=== PATIENT | male | born 1945 ===

== ENCOUNTER 2024-04-29 11:26 | Outpatient (AMB) | payer MEDICARE, MEDICAID, SELFPAY ==
[2024-04-29 11:27] VITALS: BP 112/74; PULSE 76; O2SAT 98; BMI 22.1
--- NOTE | 2024-04-29 11:27 | MHC.PC.OV ---
Vital Signs 04/29/24 11:27 Height 5 ft 7 in Weight 141 lb 0.6 oz BMI 22.1 BP 112/74 Blood Pressure Location Lt brachial Position Sitting Pulse 76 Pulse Source Pulse Oximeter Pulse Oximetry (%) 98 Oxygen Delivery Method Room Air Intake Visit Reasons: New Patient Installation Service Representative Required: Yes Installation Service Representative Language: Malawian Allergies No Known Allergies Allergy (Verified 04/29/24 11:31) Medication List - Last Reconciled 04/29/24 by Ashlie Vitale PA-C amlodipine 5 mg PO DAILY apixaban (Eliquis) 5 mg PO ONCE doxazosin 2 mg PO DAILY labetalol 100 mg PO DAILY levothyroxine 25 mcg PO DAILY lisinopril 20 mg PO DAILY spironolactone 25 mg PO DAILY Tobacco use date assessed: 04/29/24 Fall risk assessment: No Falls in past year Last assessed Fall Risk: 04/29/24 Dental Screening Dental Screen Date: 04/29/24 Did you have a dental visit in the last 12 months?: No Did you have a dental problem in the last 6 months where you did not have access to dental care?: No HPI New Patient HPI Details 78-year-old male coming to the office for the 1st time. Patient is not known to [facility]. Patient recently moved to [place] from [place] January 2024. He was diagnosed with inguinal hernia which was repaired over the summer. He has a history of a myocardial infarction and possible CVA but is unsure of the dates of these. He does rarely have chest pain that lasts for a few seconds before resolving. Last episode was 2 days ago and previously had been months ago. Denies any shortness of breath. He has a history of rheumatoid arthritis with pain in the right knee and was previously being evaluated while in [place]. Also while in [place] he had left-sided weakness CVA was ruled out and found to have muscular spasms which was treated with physical therapy in home. He primarily walks with a walker for long distances and cane while at home but does not have this equipment. Also requesting a shower chair. He was using hearing aids while in [place] but has not been evaluated many years. [facility] Medical History (Updated 04/29/24 @ 12:48 by Ashlie Vitale PA-C) Myocardial infarction Surgical History (Updated 04/29/24 @ 11:56 by [facility] H/O inguinal hernia repair H/O heart artery stent Social History Housing: House Patient Tobacco Use Status: Former Tobacco user service: No Current occupational status: retired Cognitive needs: Yes Hearing needs: Yes Vision needs: No Questionnaire PHQ-9 Over the last 2 weeks, how often have you been bothered by any of the following problems? 1. Little interest or pleasure in doing things: not at all 2. Feeling down, depressed, or hopeless: not at all 3. Trouble falling or staying asleep, or sleeping too much: not at all 4. Feeling tired or having little energy: not at all 5. Poor appetite or overeating: not at all 6. Feeling bad about yourself - or that you are a failure or have let yourself or your family down: not at all 7. Trouble concentrating on things, such as reading the newspaper or watching television: not at all 8. Moving or speaking so slowly that other people could have noticed. Or the opposite - being so fidgety or restless that you have been moving around a lot more than usual: not at all 9. Thoughts that you would be better off or of hurting yourself in some way: not at all Total score: 0 Source: Developed by Drs. Tono Arellano, Shauna Mazariegos, Vamsi Petersen and colleagues, with an educational sheila from [employer]. Thrive Questionnaire Date Thrive assessed: 04/29/24 I am a: Patient What is your living situation today?: I have a steady place to live Within the past 12 months, did the food you bought not last and you didn't have the money to get more?: I choose not to answer this question Within the past 12 months, did you worry whether your food would run out before you got money to buy more?: I choose not to answer this question Do you have trouble paying for medicines?: I choose not to answer this question Do you have trouble getting transportation to medical appointments?: I choose not to answer this question Do you have trouble paying your heating and electricity bill?: I choose not to answer this question Do you have trouble taking care of your child, family member or friend?: I choose not to answer this question Do you have trouble with day-to-day activities such as bathing, preparing meals, shopping, managing finances, etc.?: Yes Are you currently unemployed and looking for a job?: No Are you interested in more education?: No Please select the resources that you would like help with: Care for elder or disabled Currently or been in a relationship where the following occur: No concerns reported THRIVE Score: 0 AUDIT C Alcohol Use Questionnaire (AUDIT-C) 1. How often do you have a drink containing alcohol?: Never 3. How often do you have six or more drinks on one occasion?: Never Total Score: 0 TANYA-7 AMB Questionnaire TANYA-7 Date TANYA - 7 assessed: 04/29/24 Feeling nervous, anxious, or on edge: 0 = Not at all Not being able to stop or control worryin = Not at all Worrying too much about different things: 0 = Not at all Trouble relaxin = Not at all Being so restless that it is hard to sit still: 0 = Not at all Becoming easily annoyed or irritable: 0 = Not at all Feeling afraid as if something awful might happen: 0 = Not at all Total TANYA-7 score (0-4 normal; 5-9 mild; 10-14 moderate; 15-21 severe): 0 Source: Developed by Drs. Tono Arellano, Shauna Mazariegos, Vamsi Petersen and colleagues, with an educational sheila from [employer]. TANYA-7 Assessment Billing TANYA-7 Assessment Tool: TANYA-7 Assessment 90598 Review of Systems Const Denies body aches, Denies fatigue, Denies fever(s), Denies frequent falls, Denies headache(s) and Denies weakness Eyes Reports no additional complaints and Denies change in vision ENT Denies dysphagia, Denies dizziness, Denies facial pain, Denies headache(s), Reports hearing loss, Denies nasal congestion and Denies odynophagia Card Denies chest pain, Denies syncope, Denies irregular heart rhythm, Denies leg edema, Denies lightheadedness and Denies dyspnea Resp Denies cough and Denies dyspnea GI Denies abdominal pain, Denies constipation, Denies dysphagia, Denies dyspepsia, Denies diarrhea, Denies nausea, Denies odynophagia and Denies vomiting Denies dysuria and Denies urinary urgency Musc Details: Bilateral knee pain Denies back pain and Denies myalgias Skin/Breast Reports system reviewed and no additional complaints, except as documented Neuro Denies dizziness, Denies syncope, Denies frequent falls, Denies headache(s) and Denies weakness Psych Reports no additional complaints Endo Denies fatigue Physical exam (Primary Care) Vital Signs: Oxygen Delivery Method Room Air 04/29/24 11:27 Tobacco/Smoking Status: Tobacco use Status Tobacco use date assessed 04/29/24 04/29/24 11:28 PHQ-9: PHQ-9 Score PHQ-9: Total score 0 04/29/24 11:28 Thrive Assessment: Date of Thrive Assessment Date Thrive assessed 04/29/24 04/29/24 11:28 Currently or been in a relationship where the following occur: No concerns reported Const General: cooperative, healthy appearing, comfortable and no acute distress Orientation/consciousness: patient oriented x3 Limitations: ambulation with cane HENMT Head: Yes normocephalic Ears: hearing grossly normal bilaterally General nose exam: Normal external nose present Eyes General: appearance normal, both eyes and all related structures Conjunctivae: conjunctivae normal Neck Neck: Yes full ROM and Yes no lymphadenopathy Resp Effort & Inspection: normal respiratory effort Auscultation: clear to auscultation bilaterally, no crackles, no rales, no rhonchi and no wheezes Cardio Rate: regular rate Rhythm: regular rhythm Skin General skin exam: no rashes or lesions noted Neuro General: patient oriented x3 Gait exam (Neuro): Normal gait present Extrem General: Yes normal to inspection, Yes full ROM and No edema Psych Affect: normal affect Attitude: cooperative Insight: Good insight present (Psych) Judgement: Good judgement present (Psych) Coding Level of Care Code New Pt Level 4 (45750) Diagnoses Decreased hearing H91.90 Rheumatoid arthritis M06.9 COPD (chronic obstructive pulmonary disease) J44.9 Diabetes E11.9 Heart failure I50.9 Myocardial infarction I21.9 Additional Codes TANYA-7 Assessment Billing - TANYA-7 Assessment Tool: TANYA-7 Assessment 80903 ([id number]) Assessment & Plan Assessment & Plan (1) Decreased hearing: Code(s): H91.90 - Unspecified hearing loss, unspecified ear Category: Medical Plan: Referral placed for [facility] speech and hearing. (2) Rheumatoid arthritis: Code(s): M06.9 - Rheumatoid arthritis, unspecified Category: Medical Plan: Patient states he has a history of rheumatoid arthritis ordered for rheumatoid factor and can consider referral to Rheumatology. Requesting there records from his previous PCP. (3) COPD (chronic obstructive pulmonary disease): Code(s): J44.9 - Chronic obstructive pulmonary disease, unspecified Category: Medical Plan: Patient reports a history of COPD and not currently on medical management requesting records from previous PCP. (4) Diabetes: Code(s): E11.9 - Type 2 diabetes mellitus without complications Category: Medical Plan: Decrease the amount of carbohydrates such as pasta, bread, rice, and potatoes and limit the amount of sweets. Although fruits are generally healthy they should be eaten in moderation as they are still high in sugar. Hemoglobin A1c goal of less than 7%. Ordered for updated blood work, not currently on medical management. (5) Heart failure: Code(s): I50.9 - Heart failure, unspecified Category: Medical Plan: Patient is portal from his last PCP has heart failure listed as a working diagnosis. Referral placed for Cardiology and requesting previous records. Continue on current medication regimen. (6) Myocardial infarction: Comment: 2020 Code(s): I21.9 - Acute myocardial infarction, unspecified Category: Medical Plan: Patient has a history of a myocardial infarction unclear of the actual date or year but thinks it is from 2020. He has multiple stents placed in his heart. Referral placed for Cardiology at this time and requesting records from previous PCP. Plan Ordered for updated blood work and we will follow up in 2 months for annual exam. This note was constructed using voice recognition software. While every effort has been made to ensure accuracy and director of family service center, still areas may have been included sometimes these areas may affect the content or meeting of the given symptoms. Total time spent caring for the patient today was 30 minutes. This includes time spent before the visit reviewing the chart, time spent during the visit, and time spent after the visit and documentation. Orders: Orders Hemoglobin A1c Today Z00.00 - Encounter for general adult medical examination without abnormal findings Free T4 (Free Thyroxine) Today Z00.00 - Encounter for general adult medical examination without abnormal findings Vitamin D 25-OH (D2 and D3) Today Z00.00 - Encounter for general adult medical examination without abnormal findings PSA, Ultra Sensitive Today Z00.00 - Encounter for general adult medical examination without abnormal findings Comprehensive Met. Panel Today Z00.00 - Encounter for general adult medical examination without abnormal findings Complete Blood Count Auto Diff Today Z00.00 - Encounter for general adult medical examination without abnormal findings TSH reflex Free T4 Today Z00.00 - Encounter for general adult medical examination without abnormal findings Vitamin B12 and Folate Today Z00.00 - Encounter for general adult medical examination without abnormal findings UA CC w/rflx Micro + Cult Today R35.89 - Other polyuria Microalbumin, Random (w Creat) Today E11.9 - Type 2 diabetes mellitus without complications Lipid Panel Today Z00.00 - Encounter for general adult medical examination without abnormal findings Rheumatoid Factor Today M06.9 - Rheumatoid arthritis, unspecified Referrals Cardiology Referral I50.9 - Heart failure, unspecified Speech and Hearing Referral H91.90 - Unspecified hearing loss, unspecified ear Optometry Referral Z00.00 - Encounter for general adult medical examination without abnormal findings
== END 2024-04-29 12:23 | disposition home or self-care (01) ==
DX: M06.9 Rheumatoid arthritis, unspecified (principal); J44.9 Chronic obstructive pulmonary disease, unspecified; E11.9 Type 2 diabetes mellitus without complications; I50.9 Heart failure, unspecified; I21.9 Acute myocardial infarction, unspecified; H91.93 Unspecified hearing loss, bilateral

== ENCOUNTER → 2024-04-29 11:26 | Outpatient (BNVA) | payer MEDICARE, MEDICAID, SELFPAY | DX: H91.90 Unspecified hearing loss, unspecified ear (principal); M06.9 Rheumatoid arthritis, unspecified; J44.9 Chronic obstructive pulmonary disease, unspecified; E11.9 Type 2 diabetes mellitus without complications; I50.9 Heart failure, unspecified; I21.9 Acute myocardial infarction, unspecified | CPT/HCPCS: 96127; 99202 ==

== ENCOUNTER 2024-04-30 08:55 | Outpatient (REF) | payer OTHER, SELFPAY ==
[2024-04-30 09:26] LABS: MANUAL DIFF FLAG NO
[2024-04-30 10:36] LABS: Basophils Absolute Auto 0.1 X10*3/uL (0.0-0.2); Basophils Percent Auto 1.1 % (0-2); Eosinophils Absolute Auto 0.4 X10*3/uL (0.0-0.4); Eosinophils Percent Auto 8.1 % (0-4); Hematocrit 39.2 % (42.0-52.0); Hemoglobin 12.9 g/dl (14.0-18.0); Imm Gran Abs Auto 0.02 X10*3/uL (0.00-0.03); Imm Gran Pct Auto 0.4 % (0.0-0.4); Lymphocytes Absolute Auto 1.2 X10*3/uL (1.2-4.9); Lymphocytes Percent Auto 21.7 % (20-40); Mean Corpuscular HGB Conc 32.9 g/dl (31.0-36.0); Mean Corpuscular Hemoglobin 27.6 pg (27.0-33.0); Mean Corpuscular Volume 83.8 fL (80.0-98.0); Mean Platelet Volume 10.2 fL (9.4-12.4); Monocytes Absolute Auto 0.4 X10*3/uL (0.1-1.2); Monocytes Percent Auto 8.2 % (2-11); Neutrophils Absolute Auto 3.2 x10*3/uL (2.0-8.3); Neutrophils Percent Auto 60.5 % (45-73); Platelet Count 219 X10*3/uL (160-400); Red Blood Count 4.68 X10*6/uL (4.60-5.80); Red Cell Distribution Width 14.9 % (11.0-16.0); White Blood Count 5.3 X10*3/uL (4.8-10.8)
[2024-04-30 11:06] LABS: Estimated Average Glucose 105 mg/dL; Hemoglobin A1C 112.7906 umol/L; Hemoglobin A1c % 5.3 % (<6.0); Total Hemoglobin (HGBA1C) 3251.3951 umol/L
[2024-04-30 11:54] LABS: TSH reflex Free T4 1.86 uIU/mL (0.32-4.0)
[2024-04-30 11:58] LABS: Anion Gap 10 (12-20)
[2024-04-30 11:59] LABS: Folate 5.2 ng/mL (> or = 4.0); Vitamin B12 185 pg/mL (200-900)
[2024-04-30 12:03] LABS: Alanine Aminotransferase 7 U/L (0-40); Albumin Level 3.7 g/dL (3.5-5.0); Alkaline Phosphatase 85 U/L (39-117); Aspartate Amino Transferase 18 U/L (5-37); Bilirubin Total 0.7 mg/dL (0.0-1.0); Blood Urea Nitrogen 20 mg/dL (9-16); Calcium 9.9 mg/dL (8.4-10.2); Carbon Dioxide 29 mmol/L (22-29); Chloride 105 mmol/L (96-108); Cholesterol 176 mg/dL (<200); Estimated Glomerular Filt Rate 55; Glucose Random 93 mg/dL (60-115); HDL Cholesterol 35 mg/dL (>40); LDL Cholesterol Calculated 127 mg/dL (<100); Potassium 4.4 mmol/L (3.3-5.1); Sodium 140 mmol/L (135-145); Total Protein 6.8 g/dL (6.5-8.0); Triglycerides 74 mg/dL (<150)
[2024-04-30 12:59] LABS: Rheumatoid Factor 218.8 IU/mL (<15.0)
[2024-05-08 16:03] LABS: Vitamin D 25-OH, D2 <4 ng/mL; Vitamin D 25-OH, D3 36 ng/mL; Vitamin D 25-OH, Total 36 ng/mL (30-100)
[2024-05-11 21:33] LABS: PSA, Ultra Sensitive 20.79 ng/mL
== END 2024-04-30 08:56 | disposition home or self-care (01) ==
LOC: HO.LAB 08:55
DX: Z00.00 Encounter for general adult medical examination without abnormal findings (principal); Z12.5 Encounter for screening for malignant neoplasm of prostate; M06.9 Rheumatoid arthritis, unspecified; Z13.1 Encounter for screening for diabetes mellitus
CPT/HCPCS: 36415; 80053; 80061; 82306; 82607; 82746; 83036; 84153; 84439; 84443; 85025; 86431

== ENCOUNTER 2024-05-01 04:05 | Outpatient (REF) | payer OTHER, SELFPAY ==
[2024-05-01 10:16] LABS: Appearance Urine Clear; Color Urine Yellow; Glucose Urine UA Negative (Negative); Leukocyte Esterase Urine Negative (Negative); Nitrite Urine Negative (Negative); Specific Gravity - Urine 1.015 (1.005-1.025); Urine Blood Negative (Negative); Urine Ketones Negative (Negative); Urine Protein Negative (Neg-Trace)
[2024-05-01 10:52] LABS: Creatinine Urine 121.57 mg/dL; Microalbumin Urine < 5.0 mg/L
== END 2024-05-01 04:06 | disposition home or self-care (01) ==
LOC: HO.LNP 04:05
DX: E11.9 Type 2 diabetes mellitus without complications (principal); R35.89 Other polyuria
CPT/HCPCS: 81003; 82570

== ENCOUNTER 2024-05-21 12:22 | Outpatient (REF) | payer OTHER, SELFPAY | END 2024-05-21 12:23 | disposition home or self-care (01) | LOC: HO.SH 12:22 | DX: Z01.118 Encounter for examination of ears and hearing with other abnormal findings (principal); H90.3 Sensorineural hearing loss, bilateral | CPT/HCPCS: 92557; 92567 ==

== ENCOUNTER 2024-06-08 11:19 | Outpatient (AMB) | payer OTHER, SELFPAY ==
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
[2024-06-08 11:22] VITALS: BP 110/62; BMI 22.6
== END 2024-06-08 12:11 | disposition home or self-care (01) ==
DX: Z00.00 Encounter for general adult medical examination without abnormal findings (principal); I21.9 Acute myocardial infarction, unspecified; I48.91 Unspecified atrial fibrillation; I71.00 Dissection of unspecified site of aorta; J44.9 Chronic obstructive pulmonary disease, unspecified; E11.9 Type 2 diabetes mellitus without complications; I50.9 Heart failure, unspecified; G81.90 Hemiplegia, unspecified affecting unspecified side; M06.9 Rheumatoid arthritis, unspecified; E03.9 Hypothyroidism, unspecified; R97.20 Elevated prostate specific antigen [PSA]; E78.00 Pure hypercholesterolemia, unspecified

== ENCOUNTER → 2024-06-08 11:19 | Outpatient (BNVA) | payer OTHER, SELFPAY | DX: Z00.00 Encounter for general adult medical examination without abnormal findings (principal); I21.9 Acute myocardial infarction, unspecified; I48.91 Unspecified atrial fibrillation; I71.00 Dissection of unspecified site of aorta; E03.9 Hypothyroidism, unspecified; R97.20 Elevated prostate specific antigen [PSA]; M06.9 Rheumatoid arthritis, unspecified; J44.9 Chronic obstructive pulmonary disease, unspecified; E11.9 Type 2 diabetes mellitus without complications; I50.9 Heart failure, unspecified; G81.90 Hemiplegia, unspecified affecting unspecified side; E78.00 Pure hypercholesterolemia, unspecified; E53.8 Deficiency of other specified B group vitamins; H61.23 Impacted cerumen, bilateral | CPT/HCPCS: 99397 ==

== ENCOUNTER 2024-06-15 07:53 | Outpatient (AMB) | payer OTHER, SELFPAY ==
--- NOTE | 2024-06-15 07:57 | A.OFFVIS_ITS ---
Intake Visit Reasons: elevated PSA Intake Note: New Patient presents for initial visit for elevated psa (psa 20.79) Urology Medications: none Blood Thinner: Apixaban Remote Sensing Analyst Required: Yes Remote Sensing Analyst Name: [id number] Gerontology Aide: Gerontology Aide offered & declined Accompanied by: Unknown Allergies No Known Allergies Allergy (Verified 06/15/24 08:39) Medication List - Last Reconciled 06/15/24 by PATRIC Urban amlodipine 5 mg PO DAILY apixaban (Eliquis) 5 mg PO ONCE atorvastatin 40 mg PO BEDTIME cyanocobalamin (vitamin B-12) 1,000 mcg PO DAILY doxazosin 2 mg PO DAILY heating pads As directed hospital bed As directed labetalol 100 mg PO DAILY levothyroxine 25 mcg PO DAILY lisinopril 20 mg PO DAILY [quad cane As directed] Shower Chair As directed spironolactone 25 mg PO DAILY sulfamethoxazole-trimethoprim 800-160 mg (Bactrim DS) 1 tab PO BID 14 days [walker As directed for long distance] walker (Ultra-Light Rollator misc) As directed HPI Comments Details: Toan is a very pleasant 78-year-old [place]an-speaking male patient of who was accompanied by his niece at today's office visit. He has a past medical history of myocardial infarction in 2020, hypertension, and hypothyroidism. He presents to the office today as a new patient for an elevated PSA. In discussion with the patient and his niece today he reports having followed up with his PCP and his blood work for his prostate was elevated and recommendation was made for urology referral for further assessment evaluation. When asked he denies any bothersome urinary issues or concerns. He denies urinary urgency, urinary frequency, incontinence, nocturia, hematuria, dysuria, foul smelling urine, changes to urinary stream, flank pain, fever, and or chills. He is happy with his current voiding parameters. He denies any known family history of prostate cancer. In review of patient's chart it appears PSA 05/23 20.8. JOHNNY performed boggy prostate noted. We discussed at length potential causes of elevated PSA and potential for prostatitis given JOHNNY. We discussed treatment for prostatitis and reassessment in 6 weeks with PSA. We discussed obtaining retroperitoneal ultrasound for further assessment evaluation. He otherwise offers no other issues or concerns at this time. [facility] Medical History Myocardial infarction Surgical History H/O inguinal hernia repair H/O heart artery stent Social History Housing: House Alcohol intake: never Patient Tobacco Use Status: Former Tobacco user e-Cigarette/Vaping Use: Never Used Second Hand Smoke Exposure: Yes service: No Current occupational status: retired Cognitive needs: Yes (Cane) Hearing needs: Yes (Hearing aide) Vision needs: No Review of Systems Const All systems reviewed & are unremarkable except as noted in HPI and below Physical Exam Const General: cooperative, healthy appearing, comfortable, no acute distress, well developed, alert and awake Nutritional Appearance: thin Orientation/consciousness: patient oriented x3 Limitations: language barrier and ambulation with cane HEENT Head: Yes normal to inspection, Yes normocephalic and Yes atraumatic Ears: hearing grossly normal bilaterally Eyes General: appearance normal, both eyes and all related structures Neck Neck: Yes normal visual inspection and Yes trachea midline Chest Chest palpation & inspection: normal inspection of the chest Resp Effort & Inspection: normal respiratory effort and able to speak in complete sentences Cardio Rate: regular rate GI Inspection: Yes normal to inspection General: Yes no CVA tenderness Back/Spine/Pelvis Back: no CVA tenderness Skin General skin exam: no rashes or lesions noted Neuro General: patient oriented x3 Extrem General: Yes normal to inspection Psych Appearance: grossly normal and well kempt Mental Status: mental status grossly normal Speech and movement: Normal speech and movement present and Clear speech present Affect: normal affect Attitude: cooperative Thought process: Normal thought process present Thought content: Normal thought content present Insight: Fair insight present (Psych) Judgement: Fair judgement present (Psych) Assessment & Plan Assessment & Plan (1) Elevated PSA: Code(s): R97.20 - Elevated prostate specific antigen [PSA] Category: Medical (2) Prostatitis: Code(s): N41.9 - Inflammatory disease of prostate, unspecified Category: Medical Plan Unable to obtain urine for urinalysis. We discussed at length potential causes of elevated PSA as well as prostatitis. JOHNNY performed; as noted above Start Bactrim as discussed and prescribed. Discussed redraw of PSA 4-6 weeks status post completion of antibiotic therapy. Will obtain retroperitoneal ultrasound for further assessment evaluation. Patient currently denies any bothersome urinary issues or concerns. Reports be happy with current voiding parameters. Follow-up in 2 months with labs and imaging to be completed prior; or sooner with any issues, concerns, and or questions. Orders: Orders US retroperitoneal comp Today N41.9 - Inflammatory disease of prostate, unspecified, R97.20 - Elevated prostate specific antigen [PSA] PSA,Total (Free>4and<10) 6 Weeks N41.9 - Inflammatory disease of prostate, unspecified, R97.20 - Elevated prostate specific antigen [PSA] Medications: New sulfamethoxazole-trimethoprim 800-160 mg (Bactrim DS) 1 tab PO BID 28 tabs 0RF 14 days N39.0 - Urinary tract infection, site not specified Patient Instructions: The patient had an opportunity to ask questions regarding the treatment plan. All questions were answered. Physical exam, labs, and imaging were discussed and reviewed in detail. As well as risks, benefits, and discussion of treatment choices. No major barriers to understanding were identified. The patient expressed understanding and agreement with the above treatment plan. The patient was made aware they should contact our office by phone for worsening of their current condition, the appearance of new symptoms, or with any questions or concerns. Compliance is encouraged with any medications and follow up testing that is ordered. It is a privilege to be allowed the opportunity to participate in? your urological care.? Again, if you have any questions or concerns If you have any questions or concerns please do not hesitate to contact me. The office is [phone]. This note is constructed using voice recognition software. While every effort has been made to ensure accuracy cam specialist errors may have been included. Yours sincerely, PATRIC Urban Coding Level of Care Code New Pt Level 4 (04357) Diagnoses Elevated PSA R97.20 Prostatitis N41.9
== END 2024-06-15 08:38 | disposition home or self-care (01) ==
PROVIDERS: Visit Provider Nurse Practitioner Family
DX: R97.20 Elevated prostate specific antigen [PSA] (principal); N41.9 Inflammatory disease of prostate, unspecified
CPT/HCPCS: 99204

== ENCOUNTER → 2024-06-15 07:53 | Outpatient (BNVA) | payer OTHER, SELFPAY | PROVIDERS: Visit Provider Nurse Practitioner Family | DX: R97.20 Elevated prostate specific antigen [PSA] (principal); N41.9 Inflammatory disease of prostate, unspecified | CPT/HCPCS: 69210; 99202; 99212 ==

== ENCOUNTER 2024-06-15 14:13 | Outpatient (AMB) | payer OTHER, SELFPAY ==
--- NOTE | 2024-06-15 14:22 | MHC.PC.OV ---
Vital Signs 06/15/24 14:23 Height 5 ft 7 in Weight 144 lb 8 oz BMI 22.6 BP 120/62 Blood Pressure Location Lt brachial Position Sitting Pulse 80 Pulse Source Pulse Oximeter Pulse Oximetry (%) 98 Oxygen Delivery Method Room Air Intake Visit Reasons: ear cleaning - pt convenience Intake Note: Patient is here to follow up on ear cleaning. Food Product Inspector Required: Yes Food Product Inspector Language: Hay Farmer Name: Chantelle ([id number]) Information Interpreted: non-clinical & clinical Assistant Department Manager: Present Accompanied by: niece Allergies No Known Allergies Allergy (Verified 06/15/24 14:23) Tobacco use date assessed: 06/15/24 Fall risk assessment: No Falls in past year Last assessed Fall Risk: 06/15/24 Dental Screening Dental Screen Date: 04/29/24 HPI ear cleaning - pt convenience HPI Details 78-year-old male with past medical history of aortic dissection, hypothyroidism, AFib, hypertension, coronary artery disease, history of MD, rheumatoid arthritis, COPD, diabetes, heart failure last seen May 2024 coming in for ear cleaning. Chantelle filling station equipment mechanic was used for the duration of this visit. He has no concerns today. [facility] Medical History Myocardial infarction Surgical History H/O inguinal hernia repair H/O heart artery stent Social History Housing: House Alcohol intake: never Patient Tobacco Use Status: Former Tobacco user e-Cigarette/Vaping Use: Never Used Second Hand Smoke Exposure: Yes service: No Current occupational status: retired Cognitive needs: Yes (Cane) Hearing needs: Yes (Hearing aide) Vision needs: No Questionnaire Thrive Questionnaire Date Thrive assessed: 04/29/24 I am a: Patient What is your living situation today?: I have a steady place to live Within the past 12 months, did the food you bought not last and you didn't have the money to get more?: I choose not to answer this question Within the past 12 months, did you worry whether your food would run out before you got money to buy more?: I choose not to answer this question Do you have trouble paying for medicines?: I choose not to answer this question Do you have trouble getting transportation to medical appointments?: I choose not to answer this question Do you have trouble paying your heating and electricity bill?: I choose not to answer this question Do you have trouble taking care of your child, family member or friend?: I choose not to answer this question Do you have trouble with day-to-day activities such as bathing, preparing meals, shopping, managing finances, etc.?: Yes Are you currently unemployed and looking for a job?: No Are you interested in more education?: No Please select the resources that you would like help with: Care for elder or disabled Currently or been in a relationship where the following occur: No concerns reported THRIVE Score: 0 TANYA-7 AMB Questionnaire TANYA-7 Date TANYA - 7 assessed: 04/29/24 Source: Developed by Drs. Tono Arellano, Shauna Mazariegos, Vamsi Petersen and colleagues, with an educational sheila from [employer]). Review of Systems Const Denies body aches, Denies chills and Denies fever(s) Eyes Reports no additional complaints ENT Details: Clogged ears and decreased hearing Card Reports no additional complaints Resp Reports no additional complaints GI Reports no additional complaints Reports no additional complaints Musc Reports no additional complaints Physical exam (Primary Care) Tobacco/Smoking Status: Tobacco use Status Tobacco use date assessed 06/15/24 06/15/24 14:25 Patient Tobacco Use Status Former Tobacco user 06/15/24 14:25 e-Cigarette/Vaping Use Never Used 06/15/24 14:25 Thrive Assessment: Date of Thrive Assessment Date Thrive assessed 04/29/24 06/15/24 14:25 Currently or been in a relationship where the following occur: No concerns reported Const General: cooperative, healthy appearing, comfortable and no acute distress Orientation/consciousness: patient oriented x3 HENMT Head: Yes normocephalic Ears: hearing grossly normal bilaterally and Abnormal EAC present cerumen impaction bilateral General nose exam: Normal external nose present Eyes General: appearance normal, both eyes and all related structures Conjunctivae: conjunctivae normal Neck Neck: Yes full ROM and Yes no lymphadenopathy Resp Effort & Inspection: normal respiratory effort Auscultation: clear to auscultation bilaterally, no crackles, no rales, no rhonchi and no wheezes Cardio Rate: regular rate Rhythm: regular rhythm Skin General skin exam: no rashes or lesions noted Neuro General: patient oriented x3 Gait exam (Neuro): Normal gait present Extrem General: Yes normal to inspection, Yes full ROM and No edema Psych Affect: normal affect Attitude: cooperative Insight: Good insight present (Psych) Judgement: Good judgement present (Psych) Office Procedures Cerumen Removal From which ear canal was the cerumen removed: bilateral Removal: irrigation and cerumen loop/spoon Notes: patient tolerated procedure well, no complications and ear canal clear [id number] Wax Removal by Spoon/Curette Coding Level of Care Code Est Pt Level 3 (94310) Diagnoses Bilateral impacted cerumen H61.23 CPT Codes Office Procedure - CPT: 15966-Omy Wax Removal by Spoon/Curette ([id number]) Assessment & Plan Assessment & Plan (1) Bilateral impacted cerumen: Code(s): H61.23 - Impacted cerumen, bilateral Category: Medical Plan: Cerumen was successfully removed using lighted curette. Patient tolerated the procedure well without complication and ear canal was clear and atraumatic. TM was visualized as intact with well aerated middle ear spaces. Continue to follow up as needed for this concern. Plan This note was constructed using voice recognition software. While every effort has been made to ensure accuracy and film archivist, still areas may have been included sometimes these areas may affect the content or meeting of the given symptoms. Total time spent caring for the patient today was 20 minutes. This includes time spent before the visit reviewing the chart, time spent during the visit, and time spent after the visit and documentation.
[2024-06-15 14:23] VITALS: BP 120/62; PULSE 80; O2SAT 98; BMI 22.6
== END 2024-06-15 14:47 | disposition home or self-care (01) ==
DX: H61.23 Impacted cerumen, bilateral (principal)

== ENCOUNTER 2024-07-20 13:28 | Outpatient (AMB) | payer OTHER, SELFPAY ==
--- NOTE | 2024-07-20 13:31 | MHC.OFFVIS ---
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 No complaints. 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 His care was originally in [place]. At that time he had been treated for hypothyroidism AFib hypertension coronary artery disease with a history of an [place]. he is overall health had been failing and his daughter brought him over for evaluation. We had an extensive discussion about his overall condition requires the use of a cane for walking but otherwise reports he has been doing relatively the same. Has had no changes according to the family over the past year. He is being maintained on Eliquis and a statin. He now presents to us for vascular evaluation [facility] Medical History Myocardial infarction Surgical History H/O inguinal hernia repair H/O heart artery stent Social History Housing: House Alcohol intake: never Patient Tobacco Use Status: Former Tobacco user e-Cigarette/Vaping Use: Never Used Second Hand Smoke Exposure: Yes service: No Current occupational status: retired Cognitive needs: Yes (Cane) Hearing needs: Yes (Hearing aide) Vision needs: No Review of Systems Const All systems reviewed & are unremarkable except as noted in HPI and below Reports no additional complaints ENT Reports Normal hearing present Card Denies chest pain, Denies chest pain at rest, Denies chest pain with activity and Denies pedal edema Resp Denies cough GI Denies abdominal pain Musc Denies abnormal gait, Denies muscle cramps and Denies radiating pain into limb Skin/Breast Denies skin ulcer and Denies wounds Neuro Reports Normal hearing present and Denies abnormal gait Psych Reports no additional complaints Physical Exam Const General: cooperative, healthy appearing and comfortable Orientation/consciousness: oriented to person, oriented to place and oriented to time HEENT Head: Yes normal to inspection Neck Neck: Yes normal visual inspection Carotids: no bruits Chest Chest palpation & inspection: normal inspection of the chest Resp Effort & Inspection: normal respiratory effort and able to speak in complete sentences Auscultation: clear to auscultation bilaterally, no crackles, no rales, no rhonchi and no wheezes Cardio Rate: regular rate Rhythm: regular rhythm Heart sounds: S1 normal heart sound present and S2 normal heart sound present Bruits: no carotid bruits Peripheral pulses: Peripheral pulses 2+ throughout GI Inspection: Yes normal to inspection Skin Wounds: no wounds Hair: normal Neuro General: oriented to person, oriented to place and oriented to time Cranial nerves: Yes CN's II-XII intact bilaterally and Yes Normal hearing present Cognition (Neuro): normal cognition Motor exam (neuro): 5/5 motor strength present throughout Extrem Other: venous exam: No significant superficial varicosities or spider telangiectasias, minimal edema General: No clubbing, No cyanosis and No edema Psych Appearance: grossly normal Mental Status: mental status grossly normal Speech and movement: Normal speech and movement present Results Reviewed Results Reviewed: CT angiogram report from 09/09/2019 demonstrates aortic type B dissection which appeared to be stable from his prior studies from 10/08/2016 and 08/18/2013. It originates distal to the left subclavian down to the left common iliac artery. Assessment & Plan Assessment & Plan (1) Aortic dissection, thoracoabdominal: Code(s): I71.03 - Dissection of thoracoabdominal aorta Category: Medical Plan: In short patient has a thoracoabdominal dissection. It appears to originate from distal to the left subclavian down to the common iliac. He has had no studies since 2019. I have taken the liberty of ordering a CT angiogram to follow that up. At the current time he does appear to be stable with no significant end-organ issues. He will follow up with us after testing. Thank you for allowing us to assist in his care. The patient had an opportunity to ask questions regarding the treatment plan. All questions were answered. Imaging studies, laboratory studies and physical exam results were discussed and reviewed in detail. No major barriers to understanding were identified. The patient expressed understanding and agreement with the above treatment plan. The patient is aware they should contact our office by phone for worsening of the current condition or the appearance of new symptoms. Thank you for allowing me to participate in the vascular care of this patient. If you have any questions or concerns regarding the treatment for the above condition please do not hesitate to contact me. The office telephone contact is [phone]. This note is constructed using voice recognition software. While every effort has been made to ensure accuracy, post closing specialist errors may have been included. Thank you for allowing me to participate in the care of your patient. Yours sincerely, Dean Morales MD, FACS, R.P.V.I. Orders: Orders Blood Urea Nitrogen Today I71.03 - Dissection of thoracoabdominal aorta Creatinine Today I71.03 - Dissection of thoracoabdominal aorta CT angio chest aorta 1 Week I71.03 - Dissection of thoracoabdominal aorta CT angio abdomen pelvis 1 Week I71.03 - Dissection of thoracoabdominal aorta Coding Level of Care Code New Pt Level 4 (03615) Complex EM visit Add On G2211 Diagnoses Aortic dissection, thoracoabdominal I71.03
== END 2024-07-20 13:59 | disposition home or self-care (01) ==
PROVIDERS: Visit Provider Surgery Vascular Surgery
DX: I71.03 Dissection of thoracoabdominal aorta (principal)
CPT/HCPCS: 99204; G2211

== ENCOUNTER → 2024-07-20 13:28 | Outpatient (BNVA) | payer OTHER, SELFPAY | PROVIDERS: Visit Provider Surgery Vascular Surgery | DX: I48.91 Unspecified atrial fibrillation (principal); I10 Essential (primary) hypertension; I25.10 Atherosclerotic heart disease of native coronary artery without angina pectoris; I71.03 Dissection of thoracoabdominal aorta; Z79.01 Long term (current) use of anticoagulants; Z79.899 Other long term (current) drug therapy | CPT/HCPCS: 99202 ==

== ENCOUNTER 2024-07-27 09:02 | Outpatient (REF) | payer OTHER, SELFPAY ==
[2024-07-27 09:57] LABS: Blood Urea Nitrogen 23 mg/dL (9-16); Estimated Glomerular Filt Rate 55
[2024-07-27 10:23] LABS: PSA,Total (Free>4and<10) 15.23 ng/mL (0.00-4.00)
== END 2024-07-27 09:03 | disposition home or self-care (01) ==
LOC: HO.LAB 09:02
PROVIDERS: Surgery Vascular Surgery; Visit Provider Nurse Practitioner Family
DX: R97.20 Elevated prostate specific antigen [PSA] (principal); N41.9 Inflammatory disease of prostate, unspecified; I71.03 Dissection of thoracoabdominal aorta; Z12.5 Encounter for screening for malignant neoplasm of prostate
CPT/HCPCS: 36415; 82565; 84153; 84520

== ENCOUNTER 2024-08-11 09:42 | Outpatient (REF) | payer OTHER, SELFPAY ==
[2024-08-11 10:47] LABS: MANUAL DIFF FLAG NO
[2024-08-11 12:02] LABS: Basophils Absolute Auto 0.1 X10*3/uL (0.0-0.2); Basophils Percent Auto 1.3 % (0-2); Eosinophils Absolute Auto 0.2 X10*3/uL (0.0-0.4); Eosinophils Percent Auto 3.3 % (0-4); Hemoglobin 11.7 g/dl (14.0-18.0); Imm Gran Abs Auto 0.02 X10*3/uL (0.00-0.03); Imm Gran Pct Auto 0.4 % (0.0-0.4); Lymphocytes Absolute Auto 1.1 X10*3/uL (1.2-4.9); Lymphocytes Percent Auto 20.7 % (20-40); Mean Corpuscular HGB Conc 31.6 g/dl (31.0-36.0); Mean Corpuscular Hemoglobin 26.8 pg (27.0-33.0); Mean Corpuscular Volume 84.7 fL (80.0-98.0); Mean Platelet Volume 9.8 fL (9.4-12.4); Monocytes Absolute Auto 0.4 X10*3/uL (0.1-1.2); Neutrophils Absolute Auto 3.6 x10*3/uL (2.0-8.3); Neutrophils Percent Auto 67.3 % (45-73); Platelet Count 268 X10*3/uL (160-400); Red Blood Count 4.37 X10*6/uL (4.60-5.80); White Blood Count 5.4 X10*3/uL (4.8-10.8)
[2024-08-11 12:39] LABS: Alanine Aminotransferase 7 U/L (0-40); Albumin Level 3.5 g/dL (3.5-5.0); Alkaline Phosphatase 89 U/L (39-117); Anion Gap 10 (12-20); Aspartate Amino Transferase 17 U/L (5-37); Bilirubin Total 0.5 mg/dL (0.0-1.0); Blood Urea Nitrogen 21 mg/dL (9-16); C Reactive Protein 1.87 mg/dL (< or = 0.50); Calcium 8.8 mg/dL (8.4-10.2); Carbon Dioxide 28 mmol/L (22-29); Chloride 106 mmol/L (96-108); Estimated Glomerular Filt Rate 52; Glucose Random 90 mg/dL (60-115); Potassium 4.4 mmol/L (3.3-5.1); Sodium 140 mmol/L (135-145); Total Protein 7.2 g/dL (6.5-8.0)
[2024-08-11 12:47] LABS: Erythrocyte Sedimentation Rate 13 MM/HR (0-15)
[2024-08-11 12:49] LABS: HBS Num1 1.78 mIU/mL (0-7.99); HBc Num1 0.11 S/CO (0.00-0.79); HBsAGNum1 0.38 S/CO (0.00-0.99); Hepatitis A Antibody IgM 0.26 Index (0-0.79); Hepatitis B Core Antibody Nonreactive (Nonreactive); Hepatitis B Surface Antigen Negative (Negative); ~HepC Num1 0.09 S/CO (0.00-0.79); ~Hepatitis A Antibody IgM Nonreactive (Nonreactive); ~Hepatitis B Surface Antibody NONREACTIVE (Nonreactive); ~Hepatitis C Antibody Nonreactive (Nonreactive)
[2024-08-12 19:03] LABS: Cyclic Citrullinated Peptide <16 UNITS
[2024-08-14 13:18] LABS: TS Negative Control Passed; TS Panel A 0; TS Panel B 0; TS Positive Control Passed; TSpotTB Negative (Negative)
== END 2024-08-11 09:43 | disposition home or self-care (01) ==
LOC: HO.LAB 09:42
PROVIDERS: Visit Provider Student in an Organized Health Care Education/Training Program
DX: M06.9 Rheumatoid arthritis, unspecified (principal)
CPT/HCPCS: 36415; 80053; 85025; 85652; 86140; 86200; 86481; 86704; 86706; 86709; 86803; 87340; 99202

== ENCOUNTER 2024-08-11 09:42 | Outpatient (AMB) | payer MEDICAID, SELFPAY ==
--- NOTE | 2024-08-11 09:44 | A.OFFVIS_ITS ---
Vital Signs 08/11/24 09:51 Height 5 ft 7 in Weight 139 lb 12.369 oz BMI 21.9 BP 115/62 Blood Pressure Location Rt brachial Position Sitting Pulse 50 Pulse Source Pulse Oximeter Pulse Oximetry (%) 98 Oxygen Delivery Method Room Air Intake Visit Reasons: RA Intake Note: Patient presents for RA. Paraffin Plant Sweater Operator Required: Yes Paraffin Plant Sweater Operator Language: Network Pricing Consultant Services: Paraffin Plant Sweater Operator Present Paraffin Plant Sweater Operator Name: Maximo [id number] Information Interpreted: non-clinical & clinical Allergies No Known Allergies Allergy (Verified 08/11/24 09:50) HPI Comments Details: Patient is a 78-year-old male with hypertension complicated by aortic dissection status post repair and coronary artery disease status post stenting, hyperlipidemia, atrial fibrillation on Eliquis, diabetes, heart failure with reduced ejection fraction, COPD who is here today to establish care for the management of seropositive rheumatoid arthritis Patient emigrated to the [facility] from [place] about 1 year ago. He followed up with a primary care here and due to his history of a diagnosis of rheumatoid arthritis he was referred here for further management. Patient denies any joint pain, prolonged morning stiffness, joint swelling. Not currently on any medication for rheumatoid arthritis and was not on any medication for rheumatoid arthritis while in [facility] Medical History Myocardial infarction Surgical History H/O inguinal hernia repair H/O heart artery stent Social History Housing: House Alcohol intake: never Patient Tobacco Use Status: Former Tobacco user e-Cigarette/Vaping Use: Never Used Second Hand Smoke Exposure: Yes service: No Current occupational status: retired Cognitive needs: Yes (Cane) Hearing needs: Yes (Hearing aide) Vision needs: No Review of Systems Const Details: Review of Systems Constitutional: Denies fever, chills, weight loss ENT: Denies vision changes, eye pain or eye redness, dental caries, dry mouth GI: Denies nausea, vomiting, diarrhea, abdominal pain, change in BM Pulm: Denies SOB, MCCANN, hemoptysis, wheezing Cards: Denies chest pain, palpitations Skin: Denies Raynaud's, rash, nail changes, photosensitivity, WETLANDS TECHNICIAN: Denies headaches, weakness, paresthesias, recurrent falls MSK: as per HPI All other systems reviewed and are unremarkable except noted above Physical Exam Vital Signs: Last Vital Signs Pulse 50 08/11/24 09:51 BP 115/62 08/11/24 09:51 Pulse Ox 98 08/11/24 09:51 Oxygen Delivery Method Room Air 08/11/24 09:51 BMI result Body Mass Index 21.9 Vital signs reviewed Physical Examination CONSTITUITIONAL Patient alert and cooperative. Well appearing and in no apparent painful distress. Elderly gentleman HEENT Conjunctiva and sclera clear. ?Pupils equal round and reactive to light. ?No lymphadenopathy. ?Poor dentition CHEST/RESPIRATORY SYSTEM Normal respiratory effort and able to speak in complete sentences. ?Clear to auscultation bilaterally. ?No crackles, rales, rhonchi, wheezes heard. CARDIAC SYSTEM Regular rate and rhythm. ?S1 and S2 heard no murmurs. ?Radial pulses intact bilaterally MSK Hands: ?Good global marketing specialist strength bilaterally. No deformities noted. ?No synovitis noted to the MCPs, PIPs or DIPs. ?No tenderness to palpation of these joints. Heberden and Kemar's nodes noted to bilateral hands. Wrists: ?Full range of motion at the wrists without pain. ?No tenderness to palpation or synovitis noted to the wrists. Elbows: Full range of motion without pain. No tenderness, weakness, swelling, increased warmth or erythema. Shoulders: Full range of motion without pain. No tenderness, weakness, swelling, increased warmth or erythema. Hips: Full range of motion without pain. Hip bursa: No tenderness to palpation Knees: ?Full range of motion. ?No tenderness, swelling, increased warmth or erythema.?No effusion or crepitations Ankles: Full range of motion. ?No tenderness, swelling, increased warmth or erythema.? Feet: ?Negative squeeze test. ?No tenderness to palpation or swelling of the MTPs. Tender points:?No tenderness to palpation of the bilateral trapezius, supraspinatus, greater trochanters, anterior costochondral junctions, bilateral gluteal areas, bilateral suboccipital muscle insertions SKIN Skin intact without rashes. Results Reviewed Results Reviewed: Laboratory Tests 04/30/24 09:24 WBC 5.3 RBC 4.68 Hgb 12.9 L Hct 39.2 L Plt Count 219 Sodium 140 Potassium 4.4 Chloride 105 Carbon Dioxide 29 BUN 20 H Creatinine 1.27 Total Bilirubin 0.7 AST 18 ALT 7 Alkaline Phosphatase 85 Total Protein 6.8 25-OH Vitamin D Total 36 Rheumatoid Factor 218.8 H Assessment & Plan Assessment & Plan (1) Rheumatoid arthritis: Code(s): M06.9 - Rheumatoid arthritis, unspecified Category: Medical Qualifiers: Rheumatoid arthritis location: multiple sites Rheumatoid factor pr esence: with rheumatoid factor Qualified Code(s): M05.79 - Rheumatoid arthritis with rheumatoid factor of multiple sites without organ or systems involvement Plan: #Seropositive RA Patient is a 78-year-old male with multiple comorbidities here today for evaluation of a previous diagnosis of rheumatoid arthritis. Based on his high positive rheumatoid factor it is very likely that has rheumatoid arthritis however at this time he does not complain of any joint pain, no joint swelling and on his examination there was no evidence of synovitis. Discus this with the patient and granddaughter who was present, we will plan to hold off on any medications at this time since patient appears to be in remission of his rheumatoid arthritis. I think moving forward we should see him every 6 months to check in and do labs. If they have concerns in between these visits they can reach out to the office Plan - No medication at this time - Labs today: CBC, CMP, ESR, CRP, hepatitis panel, T spot, CCP - RTC 6 months Plan I spent 30 minutes reviewing the record and labs, taking a history, examining the patient, discussing the treatment plan and documenting in the medical record Orders: Orders C Reactive Protein Today M06.9 - Rheumatoid arthritis, unspecified Complete Blood Count Auto Diff Today M06.9 - Rheumatoid arthritis, unspecified Comprehensive Met. Panel Today M06.9 - Rheumatoid arthritis, unspecified Erythrocyte Sedimentation Rate Today M06.9 - Rheumatoid arthritis, unspecified Hepatitis A,B,C Profile Today M06.9 - Rheumatoid arthritis, unspecified T Spot TB Today M06.9 - Rheumatoid arthritis, unspecified Cyclic Citrullinated Peptide Today M06.9 - Rheumatoid arthritis, unspecified Coding Level of Care Code New Pt Level 3 (59473) Complex EM visit Add On G2211 Diagnoses Rheumatoid arthritis involving multiple sites with positive rheumatoid factor M05.79 Rheumatoid arthritis location: multiple sites Rheumatoid factor presence: with rheumatoid factor
[2024-08-11 09:51] VITALS: BP 115/62; PULSE 50; O2SAT 98; BMI 21.9
== END 2024-08-11 10:20 | disposition home or self-care (01) ==
PROVIDERS: Visit Provider Student in an Organized Health Care Education/Training Program
DX: M05.79 Rheumatoid arthritis with rheumatoid factor of multiple sites without organ or systems involvement (principal)
CPT/HCPCS: 99203

== ENCOUNTER 2024-08-31 11:01 | Outpatient (REF) | payer OTHER, SELFPAY ==
--- NOTE | ~2024-08-31 | US_ITS ---
EXAMINATION: US RETROPERITONEAL COMPLETE (RENAL) CLINICAL INFORMATION: Inflammatory disease of prostate gland, prostatitis.. COMPARISON: None available. TECHNIQUE: Real-time imaging of the kidneys and bladder using grayscale and color Doppler technique. FINDINGS: RIGHT KIDNEY: 9 x 5 x 5 cm (SAG x AP x TRV). Normal echotexture. Normal renal cortical thickness. No hydronephrosis. No solid or cystic lesion. Normal flow on color Doppler interrogation of the renal hilum. LEFT KIDNEY: 7 x 4 x 3 cm (SAG x AP x TRV). Normal echotexture. Volume loss of the renal cortex. Lobulations. No hydronephrosis. No solid or cystic lesion. BLADDER: Fluid-filled. Bilateral ureteral jets are demonstrated. Prevoid bladder volume is 167 mL. Postvoid bladder volume is 15 mL. Prostate gland measures 4.4 cm maximum length and volume: 35 cc. There is an irregular shaped mixed plaque abnormality in the distal abdominal aorta which measures 3.7 cm in maximum diameter. There is flow on color Doppler interrogation within the lumen. US/US retroperitoneal comp IMPRESSION: No hydronephrosis. Atrophic left kidney. Renal artery stenosis cannot be excluded. 15 cc minimal residual amount of urine in a post void image. Prostate gland is not enlarged. 3.7 cm irregular shaped mixed plaque, infrarenal/distal abdominal aorta. Recommend further imaging evaluation with CT angiogram. Electronically signed by: Audie Dsouza MD 09/01/2024 09:43 AM EST
[2024-08-31 13:03] LABS: Cholesterol 121 mg/dL (<200); HDL Cholesterol 40 mg/dL (>40); LDL Cholesterol Calculated 71 mg/dL (<100); Triglycerides 51 mg/dL (<150)
[2024-08-31 13:38] LABS: Folate 6.2 ng/mL (> or = 4.0); Vitamin B12 376 pg/mL (200-900)
== END 2024-08-31 11:02 | disposition home or self-care (01) ==
LOC: HO.US 11:01
PROVIDERS: Visit Provider Nurse Practitioner Family
DX: N41.9 Inflammatory disease of prostate, unspecified (principal); R97.20 Elevated prostate specific antigen [PSA]; E78.00 Pure hypercholesterolemia, unspecified; E53.8 Deficiency of other specified B group vitamins
CPT/HCPCS: 36415; 76770; 80061; 82607; 82746

== ENCOUNTER → 2024-08-31 11:11 | Outpatient (BNV) | payer OTHER, SELFPAY | PROVIDERS: Visit Provider Radiology Diagnostic Radiology | DX: N26.1 Atrophy of kidney (terminal) (principal) | CPT/HCPCS: 76770 ==

== ENCOUNTER 2024-09-03 08:24 | Outpatient (REF) | payer OTHER, SELFPAY ==
--- NOTE | ~2024-09-03 | CT_ITS ---
CLINICAL HISTORY: I71.03 - Dissection of thoracoabdominal aorta CT angiography chest, abdomen and pelvis with contrast. 3D Postprocessing. Comparison: None Findings: The ascending aorta is nonaneurysmal measuring up to 3.7 cm. Irregular appearance of the distal aortic arch with dissection beginning just at the origin of the left subclavian artery and involving the entire course of the aorta. 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 The descending thoracic aorta at the level of the megha measures up to 4.9 cm. Just distal to the level of the megha there is more focal saccular dilation of the thoracic aorta measuring 5.5 x 4.3 cm seen on image 28 of series 5. The aorta at the level of the diaphragmatic hiatus measures 4.0 x 3.0 cm. Contrast-enhanced blood and mural thrombus within the false lumen. The celiac artery, SMA, right renal artery and right common iliac artery arise from the true lumen. The dissection extends into the left common iliac artery which appears predominantly supplied by the false lumen with marked decreased attenuation of the blood within the left iliofemoral vessels compared to the right. The left renal artery and MARCIN appear to be supplied by the false lumen. There is an infrarenal abdominal aortic aneurysm measuring up to 4 cm seen on image 78 of series 5. No significant coronary calcium or pericardial effusion. No significant hilar or mediastinal adenopathy. Esophagus is decompressed. Enlarged left atrium. The lungs are predominantly clear aside from some basilar hypoventilatory changes. No dense consolidation, effusion or pneumothorax. There is some irregular pleural thickening within the anterolateral aspect of the left upper lobe, partially calcified and possibly related to inhalational exposure. Unremarkable thyroid. No axillary adenopathy or chest wall lesions. Unremarkable appearance of the liver. Somewhat irregular appearance of the spleen possibly related to prior infarcts. Homogeneous enhancement of the pancreas. Fat containing right adrenal lesion likely represents an adrenal myelolipoma measuring 17 mm. Normal left adrenal gland. Infarct of the lower pole of the right kidney. No hydronephrosis or stones. Hypoenhancing atrophic left kidney. The bowel appears nonobstructed and noninflamed. No fluid collections or pathologically enlarged lymph nodes. The bladder is predominantly decompressed. Enlarged prostate heterogeneously enhancing, nonspecific. Thoracolumbar spondylosis. No acute osseous findings. IMPRESSION: 1. Type B aortic dissection beginning just distal to the origin of the left subclavian artery extending into the left external iliac artery. Aorta and branch vessels described in detail above. 2. 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 3. Atrophic infarcted left kidney. 4. Enlarged heterogeneously enhancing prostate, nonspecific by CT. Recommend correlation with PSA and prostate MRI as clinically indicated. 5. Additional findings as discussed above. This document has been electronically signed by: Nicole Bettencourt MD on 09/04/2024 08:48:58
--- NOTE | ~2024-09-03 | CT_ITS ---
CLINICAL HISTORY: I71.03 - Dissection of thoracoabdominal aorta CT angiography chest, Abdomen and pelvis with contrast. 3D Postprocessing. Comparison: None Findings: The ascending aorta is nonaneurysmal measuring up to 3.7 cm. Irregular appearance of the distal aortic arch with dissection beginning just at the origin of the left subclavian artery and involving the entire course of the aorta. 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 The descending thoracic aorta at the level of the megha measures up to 4.9 cm. Just distal to the level of the megha there is more focal saccular dilation of the thoracic aorta measuring 5.5 x 4.3 cm seen on image 28 of series 5. The aorta at the level of the diaphragmatic hiatus measures 4.0 x 3.0 cm. Contrast-enhanced blood and mural thrombus within the false lumen. The celiac artery, SMA, right renal artery and right common iliac artery arise from the true lumen. The dissection extends into the left common iliac artery which appears predominantly supplied by the false lumen with marked decreased attenuation of the blood within the left iliofemoral vessels compared to the right. The left renal artery and MARCIN appear to be supplied by the false lumen. There is an infrarenal abdominal aortic aneurysm measuring up to 4 cm seen on image 78 of series 5. No significant coronary calcium or pericardial effusion. No significant hilar or mediastinal adenopathy. Esophagus is decompressed. Enlarged left atrium. The lungs are predominantly clear aside from some basilar hypoventilatory changes. No dense consolidation, effusion or pneumothorax. There is some irregular pleural thickening within the anterolateral aspect of the left upper lobe, partially calcified and possibly related to inhalational exposure. Unremarkable thyroid. No axillary adenopathy or chest wall lesions. Unremarkable appearance of the liver. Somewhat irregular appearance of the spleen possibly related to prior infarcts. Homogeneous enhancement of the pancreas. Fat containing right adrenal lesion likely represents an adrenal myelolipoma measuring 17 mm. Normal left adrenal gland. Infarct of the lower pole of the right kidney. No hydronephrosis or stones. Hypoenhancing atrophic left kidney. The bowel appears nonobstructed and noninflamed. No fluid collections or pathologically enlarged lymph nodes. The bladder is predominantly decompressed. Enlarged prostate heterogeneously enhancing, nonspecific. Thoracolumbar spondylosis. No acute osseous findings. IMPRESSION: 1. Type B aortic dissection beginning just distal to the origin of the left subclavian artery extending into the left external iliac artery. Vessel origins as described in detail above. 2. 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 3. Atrophic infarcted left kidney. 4. Enlarged heterogeneously enhancing prostate, nonspecific by CT. Recommend correlation with PSA and prostate MRI as clinically indicated. This document has been electronically signed by: Nicole Bettencourt MD on 09/04/2024 08:49:24
[2024-09-03] MEDS: iohexoL 350 MG/ML 100 ML INFUS..BTL IV (09:34)
== END 2024-09-03 08:25 | disposition home or self-care (01) ==
LOC: HO.CT 08:24
PROVIDERS: Visit Provider Surgery Vascular Surgery
DX: I71.03 Dissection of thoracoabdominal aorta (principal)
CPT/HCPCS: 71275; 74174; Q9967

== ENCOUNTER → 2024-09-03 08:26 | Outpatient (BNV) | payer OTHER, SELFPAY | PROVIDERS: Visit Provider Radiology Diagnostic Radiology | DX: I71.03 Dissection of thoracoabdominal aorta (principal); I71.22 Aneurysm of the aortic arch, without rupture | CPT/HCPCS: 71275; 74174 ==

== ENCOUNTER 2024-09-06 11:16 | Outpatient (AMB) | payer OTHER, SELFPAY ==
[2024-09-06 11:24] VITALS: BP 136/78; PULSE 9; O2SAT 97; BMI 22.2
--- NOTE | 2024-09-06 11:24 | A.OFFPC_ITS ---
Vital Signs 09/06/24 11:24 09/06/24 11:41 Height 5 ft 7 in Weight 142 lb BMI 22.2 BP 136/78 Blood Pressure Location Lt brachial Position Sitting Pulse 9 L 68 Pulse Source Pulse Oximeter Pulse Oximeter Pulse Oximetry (%) 97 Oxygen Delivery Method Room Air Intake Visit Reasons: 3 month f/u Regulatory And Compliance Technician Required: No Accompanied by: Daughter Allergies No Known Allergies Allergy (Verified 09/06/24 11:25) Tobacco use date assessed: 09/06/24 Fall risk assessment: No Falls in past year Last assessed Fall Risk: 09/06/24 Dental Screening Dental Screen Date: 09/06/24 Did you have a dental visit in the last 12 months?: No Did you have a dental problem in the last 6 months where you did not have access to dental care?: No Was dental information given to patient?: No HPI 3 month f/u HPI Details 78-year-old male with past medical histo ry of aortic dissection, hypothyroidism, AFib, hypertension, coronary artery disease, history of PR, rheumatoid arthritis, COPD, diabetes, heart failure last seen 05/2024 coming in for follow up. In review of the notes, patient was seen by [facility] – [place] Rheumatology to 06/18/2025 advised no medication management at this time and follow up in 6 months. Patient was seen by vascular surgery 07/20/[address] angiogram was ordered which was completed 09/03/2024 showing:? IMPRESSION: 1. Type B aortic dissection beginning ju st distal to the origin of the? left subclavian artery extending into the left external iliac artery.? Vessel origins as described in detail above. 2. There is also a saccular aneurysm john sing from the medial aspect of the? distal aortic arch as described. 3. Atrophic infarcted left kidney. 4. Enlarged heterogeneously enhancing pr ostate, nonspecific by CT.? Recommend correlation with PSA and prostate MRI as clinically indicated Patient will have appointment with Dr. Morales in the coming week. Patient also has an appointment with Cardiology 09/09/2024. mat linker ([id number] [place]) was used for the duration of this visit. Presenting for follow-up of chronic conditions including heart failure, rheumatoid arthritis, and vascular condition. Follow-up with vascular surgeon planned. Previous CAT scan noted in review. Monitored by special education paraeducator. No recent symptoms such as chest pain or dyspnea. He has no acute concerns today [facility] Medical History Myocardial infarction Surgical History H/O inguinal hernia repair H/O heart artery stent Social History Housing: House Alcohol intake: never Patient Tobacco Use Status: Former Tobacco user e-Cigarette/Vaping Use: Never Used Second Hand Smoke Exposure: Yes service: No Current occupational status: retired Cognitive needs: Yes (Cane) Hearing needs: Yes (Hearing aide) Vision needs: No Questionnaire PHQ-9 Over the last 2 weeks, how often have you been bothered by any of the following problems? 1. Little interest or pleasure in doing things: not at all 2. Feeling down, depressed, or hopeless: not at all 3. Trouble falling or staying asleep, or sleeping too much: not at all 4. Feeling tired or having little energy: not at all 5. Poor appetite or overeating: not at all 6. Feeling bad about yourself - or that you are a failure or have let yourself or your family down: not at all 7. Trouble concentrating on things, such as reading the newspaper or watching television: not at all 8. Moving or speaking so slowly that other people could have noticed. Or the opposite - being so fidgety or restless that you have been moving around a lot more than usual: not at all 9. Thoughts that you would be better off or of hurting yourself in some way: not at all Total score: 0 Depression Screening Interpretation: Negative Depression Screening Done: Yes Source: Developed by Drs. Tono Arellano, Shauna Mazariegos, Vamsi Petersen and colleagues, with an educational sheila from [employer]. Thrive Questionnaire Date Thrive assessed: 09/06/24 I am a: Patient What is your living situation today?: I have a steady place to live Within the past 12 months, did the food you bought not last and you didn't have the money to get more?: I choose not to answer this question Within the past 12 months, did you worry whether your food would run out before you got money to buy more?: I choose not to answer this question Do you have trouble paying for medicines?: I choose not to answer this question Do you have trouble getting transportation to medical appointments?: I choose not to answer this question Do you have trouble paying your heating and electricity bill?: I choose not to answer this question Do you have trouble taking care of your child, family member or friend?: I choose not to answer this question Do you have trouble with day-to-day activities such as bathing, preparing meals, shopping, managing finances, etc.?: Yes Are you currently unemployed and looking for a job?: No Are you interested in more education?: No Please select the resources that you would like help with: Care for elder or disabled Currently or been in a relationship where the following occur: No concerns reported THRIVE Score: 0 AUDIT C Alcohol Use Questionnaire (AUDIT-C) 1. How often do you have a drink containing alcohol?: Never 3. How often do you have six or more drinks on one occasion?: Never Total Score: 0 TANYA-7 AMB Questionnaire TANYA-7 Date TANYA - 7 assessed: 09/06/24 Feeling nervous, anxious, or on edge: 0 = Not at all Not being able to stop or control worryin = Not at all Worrying too much about different things: 0 = Not at all Trouble relaxin = Not at all Being so restless that it is hard to sit still: 0 = Not at all Becoming easily annoyed or irritable: 0 = Not at all Feeling afraid as if something awful might happen: 0 = Not at all Total TANYA-7 score (0-4 normal; 5-9 mild; 10-14 moderate; 15-21 severe): 0 Source: Developed by Drs. Tono Arellano, Shauna Mazariegos, Vamsi Petersen and colleagues, with an educational sheila from [employer]. Review of Systems Const Denies body aches, Denies chills, Denies fever(s), Denies headache(s) and Denies poor appetite Eyes Reports no additional complaints ENT Denies dysphagia, Denies dizziness, Denies headache(s) and Denies odynophagia Card Denies chest pain, Denies syncope, Denies edema, Denies irregular heart rhythm, Denies lightheadedness and Denies dyspnea Resp Denies cough and Denies dyspnea GI Denies abdominal pain, Denies constipation, Denies dysphagia, Denies diarrhea, Denies nausea, Denies odynophagia and Denies vomiting Reports no additional complaints Musc Reports no additional complaints and Denies abnormal gait Skin/Breast Reports system reviewed and no additional complaints, except as documented Neuro Denies abnormal gait, Denies dizziness, Denies syncope and Denies headache(s) Psych Reports no additional complaints Physical exam (Primary Care) Vital Signs: Last Vital Signs Pulse 68 09/06/24 11:41 BP 136/78 09/06/24 11:24 Pulse Ox 97 09/06/24 11:24 Oxygen Delivery Method Room Air 09/06/24 11:24 BMI result Body Mass Index 22.2 Tobacco/Smoking Status: Tobacco use Status Tobacco use date assessed 09/06/24 09/06/24 11:30 Patient Tobacco Use Status Former Tobacco user 09/06/24 11:30 e-Cigarette/Vaping Use Never Used 09/06/24 11:30 PHQ-9: PHQ-9 Score PHQ-9: Total score 0 09/06/24 11:34 Depression Screening Interpretation: Negative Thrive Assessment: Date of Thrive Assessment Date Thrive assessed 09/06/24 09/06/24 11:30 Currently or been in a relationship where the following occur: No concerns reported Const General: cooperative, healthy appearing, comfortable and no acute distress Orientation/consciousness: patient oriented x3 HENMT Head: Yes normocephalic Ears: hearing grossly normal bilaterally General nose exam: Normal external nose present Eyes General: appearance normal, both eyes and all related structures Conjunctivae: conjunctivae normal Neck Neck: Yes full ROM and Yes no lymphadenopathy Resp Effort & Inspection: normal respiratory effort Auscultation: clear to auscultation bilaterally, no crackles, no rales, no rhonchi and no wheezes Cardio Rate: regular rate Rhythm: regular rhythm Skin General skin exam: no rashes or lesions noted Neuro General: patient oriented x3 Gait exam (Neuro): Normal gait present Extrem General: Yes normal to inspection, Yes full ROM and No edema Psych Affect: normal affect Attitude: cooperative Insight: Good insight present (Psych) Judgement: Good judgement present (Psych) Coding Level of Care Code Est Pt Level 3 (76438) Diagnoses Aortic dissection, thoracoabdominal I71.03 Hypercholesterolemia E78.00 Afib I48.91 Myocardial infarction I21.9 Rheumatoid arthritis involving multiple sites with positive rheumatoid factor M05.79 Rheumatoid arthritis location: multiple sites Rheumatoid factor presence: with rheumatoid factor Diabetes E11.9 Heart failure I50.9 Prostatitis N41.9 Assessment & Plan Assessment & Plan (1) Aortic dissection, thoracoabdominal: Code(s): I71.03 - Dissection of thoracoabdominal aorta Category: Medical Plan: Recent CT angiogram completed will have follow up with vascular surgery in the next coming weeks. (2) Hypercholesterolemia: Code(s): E78.00 - Pure hypercholesterolemia, unspecified Category: Medical Plan: Avoid foods that are high in cholesterol such as red meat, fried foods, eggs and baked goods. Triglyceride goal of less than 150 and LDL goal of less than 70. Continue on atorvastatin 40 (3) Afib: Code(s): I48.91 - Unspecified atrial fibrillation Category: Medical Plan: Currently on anticoagulation with apixaban 5 mg and on rate control with labetalol. Has a appointment with Cardiology later this week. (4) Myocardial infarction: Comment: 2020 Code(s): I21.9 - Acute myocardial infarction, unspecified Category: Medical Plan: Patient has appointment with cardiology later this week. Given past history of myocardial infarction LDL goal is less than 70, advised good control of blood pressure currently on lisinopril and amlodipine and managing diabetes. (5) Rheumatoid arthritis: Code(s): M06.9 - Rheumatoid arthritis, unspecified Category: Medical Qualifiers: Rheumatoid arthritis location: multiple sites Rheumatoid factor presence: with rheumatoid factor Qualified Code(s): M05.79 - Rheumatoid arthritis with rheumatoid factor of multiple sites without organ or systems involvement Plan: Recently seen by rheumatology advised no medication at this time and continue to follow up with them. (6) Diabetes: Code(s): E11.9 - Type 2 diabetes mellitus without complications Category: Medical Plan: Decrease the amount of carbohydrates such as pasta, bread, rice, and potatoes and limit the amount of sweets. Although fruits are generally healthy they should be eaten in moderation as they are still high in sugar. Hemoglobin A1c goal of less than 7%. (7) Heart failure: Code(s): I50.9 - Heart failure, unspecified Category: Medical Plan: Patient previously diagnosed with heart failure on spironolactone. On exam today no signs of fluid overload and no symptoms of heart failure reported. Continue with management of blood pressure, cholesterol and diabetes. (8) Prostatitis: Code(s): N41.9 - Inflammatory disease of prostate, unspecified Category: Medical Plan: Patient is currently following with Urology and has an upcoming appointment with them. They will likely review of the findings of the CT scan: 4. Enlarged heterogeneously enhancing prostate, nonspecific by CT. Recommend correlation with PSA and prostate MRI as clinically indicated Plan Management includes the continuation of atorvastatin for hyperlipidemia and follow-ups with specialists for comprehensive care of heart failure, myocardial infarction, and vascular concerns. Rheumatoid arthritis maintenance without pharmaceuticals is advised due to the patient's current symptom profile. The patient requires auditory follow-up for hearing aid procurement, and I have made provisions for new automotive general sales manager referrals due to current delays. Scheduled urologist consultations will address benign prostatic hyperplasia. Routine blood examinations support overall monitoring of biochemical functions and guide health maintenance strategies. This note was constructed using voice recognition software. While every effort has been made to ensure accuracy and business division chair, still areas may have been included sometimes these areas may affect the content or meeting of the given symptoms. Total time spent caring for the patient today was 20 minutes. This includes time spent before the visit reviewing the chart, time spent during the visit, and time spent after the visit and documentation. Patient was informed and verbally consented to the use of an ambient scribe for clinic note documentation during this visit. Orders: Referrals Optometry Referral E11.9 - Type 2 diabetes mellitus without complications, Z00.00 - Encounter for general adult medical examination without abnormal findings
[2024-09-06 11:41] VITALS: PULSE 68
== END 2024-09-06 11:55 | disposition home or self-care (01) ==
DX: I71.03 Dissection of thoracoabdominal aorta (principal); I48.91 Unspecified atrial fibrillation; I25.2 Old myocardial infarction; M05.79 Rheumatoid arthritis with rheumatoid factor of multiple sites without organ or systems involvement; E11.9 Type 2 diabetes mellitus without complications; I50.9 Heart failure, unspecified; E78.00 Pure hypercholesterolemia, unspecified; N41.9 Inflammatory disease of prostate, unspecified

== ENCOUNTER → 2024-09-06 11:16 | Outpatient (BNVA) | payer OTHER, SELFPAY | DX: I71.03 Dissection of thoracoabdominal aorta (principal); E78.00 Pure hypercholesterolemia, unspecified; I48.91 Unspecified atrial fibrillation; I21.9 Acute myocardial infarction, unspecified; M05.79 Rheumatoid arthritis with rheumatoid factor of multiple sites without organ or systems involvement; E11.9 Type 2 diabetes mellitus without complications; I50.9 Heart failure, unspecified; N41.9 Inflammatory disease of prostate, unspecified | CPT/HCPCS: 99212 ==

== ENCOUNTER 2024-09-09 13:47 | Outpatient (AMB) | payer OTHER, SELFPAY ==
[2024-09-09 14:06] VITALS: BP 114/76; PULSE 60; BMI 22.4
--- NOTE | 2024-09-09 14:06 | MHC.OFFVIS ---
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 Present Accompanied by: Family/Other Allergies No Known Allergies Allergy (Verified 09/06/24 11:25) Medication List - Last Reconciled 09/09/24 by Tay Loera MD amlodipine 5 mg PO DAILY apixaban (Eliquis) 5 mg PO ONCE atorvastatin 40 mg PO BEDTIME cyanocobalamin (vitamin B-12) 1,000 mcg PO DAILY doxazosin 2 mg PO DAILY heating pads As directed hospital bed As directed labetalol 100 mg PO DAILY levothyroxine 25 mcg PO DAILY lisinopril 20 mg PO DAILY [quad cane As directed] Shower Chair As directed spironolactone 25 mg PO DAILY [walker As directed for long distance] walker (Ultra[place] [facility] [place] directed HPI Comments Details: Remote was referred here for further cardiovascular evaluation. Despite the hse coordinator and the niece present in the room, patient is poor historian. Patient was significant past cardiovascular history including reported CAD with stenting, could not find any records. Not sure as to the symptoms or clinical situation leading to stent placement. 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 He also carries a diagnose of congestive heart failure however currently not on any loop diuretics. Already on spironolactone. He also has history of atrial fibrillation which appears to be chronic persistent and on chronic oral anticoagulation therapy. History of CVA with left hemiparesis. Timeline to all of these events is unclear to me. Patient is currently taking all her medications and says been more regular since he has moved to [facility] to live with his niece. The niece make sure he takes all his medications. He currently is walking with a cane and has poor balance as he has not been walking much due to his arthritis as per the niece but has been getting more into it. He denies any exertional symptoms of chest pain or shortness of breath but with limited exercise capacity. Denies any clear orthopnea, PND, leg edema. Denies any prolonged palpitation, irregular heartbeat, lightheadedness, syncope. Taking all his medication including oral anticoagulation therapy with apixaban with no bleeding issues or neurologic events. [facility] Medical History Myocardial infarction Surgical History H/O inguinal hernia repair H/O heart artery stent Social History Housing: House Alcohol intake: never Patient Tobacco Use Status: Former Tobacco user e-Cigarette/Vaping Use: Never Used Second Hand Smoke Exposure: Yes service: No Current occupational status: retired Cognitive needs: Yes (Cane) Hearing needs: Yes (Hearing aide) Vision needs: No Review of Systems Const Denies chills, Denies daytime sleepiness, Denies fatigue, Denies fever(s), Denies frequent falls, Denies poor appetite, Denies snoring, Denies stops breathing during sleep, Denies weakness, Denies weight gain and Denies weight loss Eyes Denies loss of vision ENT Denies dizziness and Denies hearing loss Card Denies chest pain, Denies claudication, Denies leg edema, Denies lightheadedness, Denies palpitations, Denies dyspnea, Denies dyspnea on exertion and Denies orthopnea Resp Denies cough, Denies excessive phlegm production, Denies dyspnea, Denies dyspnea on exertion, Denies snoring and Denies wheezing GI Denies abdominal pain, Denies hematochezia, Denies change in bowel habits, Denies nausea and Denies vomiting Denies dysuria and Denies urinary frequency Musc Denies arthralgias, Denies muscle weakness, Denies numbness and Denies other (frequent falls) Skin/Breast Denies nail changes and Denies rash Neuro Denies Abnormal speech present, Denies dizziness, Denies frequent falls, Denies loss of vision, Denies memory loss, Denies numbness and Denies weakness Psych Denies depression and Denies memory loss Endo Denies fatigue and Denies palpitations Neel/Lymph Reports easy bruising and Reports other (anemia) Aller/Immun Denies wheezing Physical Exam Vital Signs: Last Vital Signs Pulse 60 09/09/24 14:06 BP 114/76 09/09/24 14:06 BMI result Body Mass Index 22.4 Const General: cooperative, comfortable, no acute distress, alert and awake Nutritional Appearance: thin and other (Frail elderly man) Orientation/consciousness: patient oriented x3 Limitations: ambulation with cane HEENT Head: Yes normocephalic and Yes atraumatic Neck Neck: Yes trachea midline, Yes supple and Yes no JVD Resp Effort & Inspection: normal respiratory effort Auscultation: clear to auscultation bilaterally Cardio Jugular venous distension: no JVD Rate: regular rate Rhythm: abnormal rhythm irregularly irregular Heart sounds: S1 normal heart sound present, S2 normal heart sound present, no click, no gallops, no murmurs and no rubs GI Auscultation: normal bowel sounds Skin General skin exam: no rashes or lesions noted Neuro General: patient oriented x3 and no focal motor deficits Speech: No Abnormal speech present Extrem General: Yes no clubbing, cyanosis or edema Office Procedures EKG Details: EKG shows atrial fibrillation with diffuse T-wave changes in inferior inferolateral leads suggestive of repolarization abnormality but could represent ischemia 84170-[id number], Complete Assessment & Plan Assessment & Plan (1) CAD (coronary artery disease): Code(s): I25.10 - Atherosclerotic heart disease of [place] coronary artery without angina pectoris Category: Medical Plan: Reported prior history of CAD with stenting. Would like to obtain old records. EKGs abnormal. Will suggest a vasodilating myocardial perfusion imaging to assess for myocardial ischemia. Also suggest an echocardiogram to evaluate LV systolic function and valvular abnormality as well as biatrial chamber size, see below as well as pulmonary hypertension. Further testing based on the findings. Continue aggressive risk factor modification. Given his prior stroke and CAD should be on high-intensity statin therapy which he was with target goal LDL less than 70 mg/dL. Currently on full oral anticoagulation Eliquis and will therefore avoid antiplatelet agent to reduce bleeding risk (2) Afib: Code(s): I48.91 - Unspecified atrial fibrillation Category: Medical Plan: Atrial fibrillation which appears to be chronic persistent without any obvious symptoms. Rate appears to be adequately controlled at this point time on current labetalol therapy. Advise a Holter monitor to assess for the same. Continue current rate control approach. Will obtain echocardiogram to assess for biatrial chamber size but given that he has no symptoms and current age and multiple comorbidities will pursue rate control approach. Continue full oral anticoagulation with prior history of stroke he is at high risk for recurrent stroke currently on Eliquis therapy. Semi annual renal function test should be pursued. (3) Heart failure: Code(s): I50.9 - Heart failure, unspecified Category: Medical Plan: Reported history of heart failure, clinically appears to be euvolemic and well compensated most likely due to good control of blood pressure as well as he is currently on spironolactone therapy. Does not require loop diuretic therapy. Advised to monitor for signs and symptoms of heart failure. These were discussed with him. Continue risk factor modification as above. Follow up in the clinic in 3 months time after mentioned test. Thank you for allowing me to partake in his care Orders: Orders ECG holter monitor 48 hour Today I48.91 - Unspecified atrial fibrillation CA echo transthoracic complete Today I48.91 - Unspecified atrial fibrillation CA lexiscan stress w kamla Today I25.10 - Atherosclerotic heart disease of [place] coronary artery without angina pectoris Coding Level of Care Code New Pt Level 4 (83977) Complex EM visit Add On G2211 Diagnoses CAD (coronary artery disease) I25.10 Afib I48.91 Heart failure I50.9 CPT Codes EKG - CPT: 59007-[id number], Complete ([id number])
== END 2024-09-09 14:46 | disposition home or self-care (01) ==
LOC: HO.HCS 13:48
PROVIDERS: Visit Provider Internal Medicine Cardiovascular Disease
DX: I25.10 Atherosclerotic heart disease of native coronary artery without angina pectoris (principal); I48.91 Unspecified atrial fibrillation; I50.9 Heart failure, unspecified
CPT/HCPCS: 93010; 99204; G2211

== ENCOUNTER → 2024-09-09 13:47 | Outpatient (BNVA) | payer OTHER, SELFPAY | PROVIDERS: Visit Provider Internal Medicine Cardiovascular Disease | DX: I50.9 Heart failure, unspecified (principal); I25.10 Atherosclerotic heart disease of native coronary artery without angina pectoris; I48.91 Unspecified atrial fibrillation; I69.354 Hemiplegia and hemiparesis following cerebral infarction affecting left non-dominant side; Z79.01 Long term (current) use of anticoagulants; Z87.891 Personal history of nicotine dependence; Z95.828 Presence of other vascular implants and grafts; Z79.899 Other long term (current) drug therapy | CPT/HCPCS: 93005; 99202 ==

== ENCOUNTER 2024-09-13 08:26 | Outpatient (AMB) | payer OTHER, SELFPAY ==
--- NOTE | 2024-09-13 08:32 | A.OFFVIS_ITS ---
Intake Visit Reasons: 2-3 M PSA/US(set) Intake Note: Patient presents today for follow up visit for elevated psa PSA: 15.23 Imaging Completed: 08/31/24 Urology Medications: none Blood Thinner: Apixaban Application Architect Required: Yes Application Architect Name: Terese [id number] Accompanied by: Unknown Allergies No Known Allergies Allergy (Verified 09/13/24 08:44) Medication List - Last Reconciled 09/13/24 by RSOELIA Urban- amlodipine 5 mg PO DAILY apixaban (Eliquis) 5 mg PO ONCE atorvastatin 40 mg PO BEDTIME cyanocobalamin (vitamin B-12) 1,000 mcg PO DAILY doxazosin 2 mg PO DAILY heating pads As directed hospital bed As directed labetalol 100 mg PO DAILY levothyroxine 25 mcg PO DAILY lisinopril 20 mg PO DAILY [quad cane As directed] Shower Chair As directed spironolactone 25 mg PO DAILY [walker As directed for long distance] walker (Ultra-Light Rollator misc) As directed HPI Comments Details: Toan is a very pleasant 79-year-old English-speaking male patient of who was accompanied by his niece at today's office visit. He has a past medical history of myocardial infarction in 2020, hypertension, and hypothyroidism. He presents to the office today for follow-up. Of note, patient was seen approximately 3 months ago as a new patient for an elevated PSA at which time a retroperitoneal ultrasound was ordered for further assessment evaluation and patient was given a 2 week prescription of Bactrim for presumed prostatitis given in office JOHNNY noted boggy prostate. In discussion with the patient today he reports to be doing and feeling well. He denies having had any bothersome urinary issues or concerns since his last office visit here. Recent retroperitoneal ultrasound results reviewed in discussed. Bilateral kidneys are normal in echotexture. No hydronephrosis or renal calculi noted. The bladder is fluid-filled. Bilateral ureteral jets are demonstrated. Pre void bladder volume is a proximally 165 mL. Postvoid bladder volume is a proximally 15 mL. The prostate gland measures 35 mL. 3.7 cm irregular shaped mixed plaque infrarenal/distal abdominal aorta recommending further imaging evaluation with CT angiogram per radiology report. Patient and patient's niece report he has since had CT angio urogram and referral to vascular surgeon. Recent PSA results reviewed with the patient today. PSA: 05/23 20.8, 07/24 15.2 We discussed decrease in PSA although remains elevated. He reports having completed antibiotic therapy as prescribed. We discussed further intervention to include surveillance monitoring, initiation of finasteride, MRI of the prostate, and or prostate biopsy. Risks and benefits of these interventions were discussed. All questions were answered. He denies urinary urgency, urinary frequency, incontinence, nocturia, hematuria, dysuria, foul smelling urine, changes to urinary stream, flank pain, fever, and or chills. He is happy with his current voiding parameters. He denies any family history of prostate cancer. Unable to obtain urine for urinalysis as patient unable to void. He otherwise offers no other issues or concerns at this time. [facility] Medical History Myocardial infarction Surgical History H/O inguinal hernia repair H/O heart artery stent Social History Housing: House Alcohol intake: never Patient Tobacco Use Status: Former Tobacco user e-Cigarette/Vaping Use: Never Used Second Hand Smoke Exposure: Yes service: No Current occupational status: retired Cognitive needs: Yes (Cane) Hearing needs: Yes (Hearing aide) Vision needs: No Review of Systems Const All systems reviewed & are unremarkable except as noted in HPI and below Physical Exam Const General: cooperative, healthy appearing, comfortable, no acute distress, well developed, alert and awake Nutritional Appearance: thin Orientation/consciousness: patient oriented x3 Limitations: language barrier and ambulation with cane HEENT Head: Yes normal to inspection, Yes normocephalic and Yes atraumatic Ears: hearing grossly normal bilaterally Eyes General: appearance normal, both eyes and all related structures Neck Neck: Yes normal visual inspection and Yes trachea midline Chest Chest palpation & inspection: normal inspection of the chest Resp Effort & Inspection: normal respiratory effort and able to speak in complete sentences Cardio Rate: regular rate GI Inspection: Yes normal to inspection General: Yes no CVA tenderness Back/Spine/Pelvis Back: no CVA tenderness Skin General skin exam: no rashes or lesions noted Neuro General: patient oriented x3 Extrem General: Yes normal to inspection Psych Appearance: grossly normal and well kempt Mental Status: mental status grossly normal Speech and movement: Normal speech and movement present and Clear speech present Affect: normal affect Attitude: cooperative Thought process: Normal thought process present Thought content: Normal thought content present Insight: Fair insight present (Psych) Judgement: Fair judgement present (Psych) Results Reviewed Results Reviewed: Date of Service: 08/31/24 Procedure(s): US retroperitoneal comp FINDINGS: RIGHT KIDNEY: 9 x 5 x 5 cm (SAG x AP x TRV). Normal echotexture. Normal renal cortical thickness. No hydronephrosis. No solid or cystic lesion. Normal flow on color Doppler interrogation of the renal hilum. LEFT KIDNEY: 7 x 4 x 3 cm (SAG x AP x TRV). Normal echotexture. Volume loss of the renal cortex. Lobulations. No hydronephrosis. No solid or cystic lesion. BLADDER: Fluid-filled. Bilateral ureteral jets are demonstrated. Prevoid bladder volume is 167 mL. Postvoid bladder volume is 15 mL. Prostate gland measures 4.4 cm maximum length and volume: 35 cc. There is an irregular shaped mixed plaque abnormality in the distal abdominal aorta which measures 3.7 cm in maximum diameter. There is flow on color Doppler interrogation within the lumen. IMPRESSION: No hydronephrosis. Atrophic left kidney. Renal artery stenosis cannot be excluded. 15 cc minimal residual amount of urine in a post void image. Prostate gland is not enlarged. 3.7 cm irregular shaped mixed plaque, infrarenal/distal abdominal aorta. Recommend further imaging evaluation with CT angiogram. Assessment & Plan Assessment & Plan (1) Elevated PSA: Code(s): R97.20 - Elevated prostate specific antigen [PSA] Category: Medical Plan Unable to obtain urine for urinalysis as patient unable to void. Recent retroperitoneal ultrasound results reviewed with the patient today; as noted above. Recent PSA results reviewed with the patient today; as noted above. We discussed at length potential causes of elevated PSA and further treatment options as well as risks and benefits of these treatment options. Start Finasteride as discussed and prescribed. We discussed decrease in PSA however PSA remains elevated. We discussed importance of surveillance monitoring. Patient currently denies any bothersome urinary issues or concerns. He reports be happy with current voiding parameters. Will obtain PSA in 4 months. Follow-up in 4 months with PSA and PVR; or sooner with any issues, concerns, and or questions. Orders: Orders PSA,Total (Free>4and<10) 4 Months R97.20 - Elevated prostate specific antigen [PSA] Medications: New finasteride 5 mg PO DAILY 90 days 90 tabs 1RF N40.1 - Benign prostatic hyperplasia with lower urinary tract symptoms, R33.9 - Retention of urine, unspecified Patient Instructions: The patient had an opportunity to ask questions regarding the treatment plan. All questions were answered. Physical exam, labs, and imaging were discussed and reviewed in detail. As well as risks, benefits, and discussion of treatment choices. No major barriers to understanding were identified. The patient expressed understanding and agreement with the above treatment plan. The patient was made aware they should contact our office by phone for worsening of their current condition, the appearance of new symptoms, or with any questions or concerns. Compliance is encouraged with any medications and follow up testing that is ordered. It is a privilege to be allowed the opportunity to participate in? your urological care.? Again, if you have any questions or concerns If you have any questions or concerns please do not hesitate to contact me. The office is [phone]. This note is constructed using voice recognition software. While every effort has been made to ensure accuracy electroneurodiagnostic technologist errors may have been included. Yours sincerely, PATRIC Urban Coding Level of Care Code Est Pt Level 4 (81605) Diagnoses Elevated PSA R97.20
== END 2024-09-13 08:59 | disposition home or self-care (01) ==
LOC: HO.HUSH 08:26
PROVIDERS: Visit Provider Nurse Practitioner Family
DX: R97.20 Elevated prostate specific antigen [PSA] (principal)
CPT/HCPCS: 99214

== ENCOUNTER → 2024-09-13 08:26 | Outpatient (BNVA) | payer OTHER, SELFPAY | PROVIDERS: Visit Provider Nurse Practitioner Family | DX: R97.20 Elevated prostate specific antigen [PSA] (principal) | CPT/HCPCS: 99212 ==

== ENCOUNTER 2024-10-08 12:41 | Outpatient (AMB) | payer OTHER, SELFPAY ==
[2024-10-08 12:54] VITALS: BP 120/70; PULSE 70; TEMP 36.3; O2SAT 97; BMI 21.8
--- NOTE | 2024-10-08 12:54 | MHC.PC.OV ---
Vital Signs 10/08/24 12:54 Height 5 ft 7 in Weight 139 lb 2 oz BMI 21.8 BP 120/70 Blood Pressure Location Lt brachial Position Sitting Pulse 70 Pulse Source Pulse Oximeter Temp 97.3 F Temp Source Temporal Artery Scan Pulse Oximetry (%) 97 Oxygen Delivery Method Room Air Intake Visit Reasons: [facility] [place] 10/04 CAD Intake Note: Visit Reason: TCM Intake Note: Patient is here for hospital discharge follow up. Patient was discharged from Project Officer Required: No Roller Repairer: Not Required per policy Accompanied by: Family/Other Allergies No Known Allergies Allergy (Verified 10/08/24 14:12) Medication List - Last Reconciled 10/08/24 by Apolonia Mcfarland PA-C amlodipine 5 mg PO DAILY apixaban (Eliquis) 5 mg PO ONCE atorvastatin 40 mg PO BEDTIME cyanocobalamin (vitamin B-12) 1,000 mcg PO DAILY doxazosin 2 mg PO DAILY finasteride 5 mg PO DAILY 90 days heating pads As directed hospital bed As directed labetalol 100 mg PO BID levothyroxine 25 mcg PO DAILY lisinopril 20 mg PO DAILY [quad cane As directed] Shower Chair As directed [walker As directed for long distance] walker (Ultra-Light Rollator misc) As directed Tobacco use date assessed: 09/06/24 Dental Screening Dental Screen Date: 09/06/24 HPI HPI Comments History of Present Illness Details Patient presents to the office for a TCM visit. Date of admission: 09/28/2024 Date of discharge: 10/04/2024 This is a Follow-up from admission at [facility] HPI: The patient is an 79-year-old male presenting for a hospital discharge follow-up. 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 Diagnostic imaging confirmed these findings, and stable Chronic Kidney Disease Stage 3 with an atrophic left kidney was noted. Post-discharge, the patient reported stable control of hypertension after medication adjustments. The patient denies any chest pain or dyspnea, even while performing moderate activity, such as ambulating through his residence. Medication changes included cessation of spironolactone and continued use of labetalol and amlodipine, necessitated by episodes of low blood pressure post-discharge. No new cognitive evaluations were planned, but the family has noted episodes of forgetfulness, the family has also noticed on the discharge summary that the patient has a diagnosis of dementia although they were not aware of this diagnosis and they would like a referral to Neurology due to a family history of Alzheimer's dementia. Niece at bedside who is the main medical observer is concerned due to the patient's blood pressure has been 130s over 80s when he wakes up and then she gives him the labetalol 100 mg and his blood pressure goes down to the 115-120/70's. She reports they told her at [facility] that he should be taking labetalol 100 mg twice a day although on the discharge summary it reports that the patient should be taking 200 mg labetalol which is 400 mg twice a day and patient is confused. She reports she is nervous about giving him 200 mg twice a day due to he has low blood pressures initially. She reports when she gives him the 100 mg labetalol which she was currently on prescribed by Dr. Loera was working fine. She reports she does not give him the labetalol at nighttime as it was prescribed by Dr. Loera the plywood stock grader in the past due to his blood pressure is usually 100/60. Hospital Course/Discharge Summary: 79-year-old male who comes into the emergency department complaining of chest pain. Patient known to have aortic aneurysm, patient went to have a type B aortic aneurysm dissection. Patient evaluated by vascular surgery, appreciate input. Was initially started on Narcan drip, transitioned to p.o. medications. Patient was noted to have ANDREA likely from contrast. Renal function improved with IV fluids. Spoke to renal doctor and patient can resume lisinopril on 10/03/2024. Patient was also noted to have episodes of bradycardia wanting evaluation of 2.2nd pauses on telemetry, discussed with Cardiology, okay to continue labetalol. Patient's blood pressure has been fairly controlled with amlodipine 5 mg daily and labetalol 100 mg twice daily. Discussed with patient's family as patient's blood pressure was uncontrolled on a much more aggressive regimen outpatient, patient neurologist to have high salt diet at home, patient states he sprinkles all over all his meals especially exit breakfast. Extensive discussion with patient and niece is at bedside recommend to avoid high salt intake. Renal and vascular surgery discussed with renal holding all spironolactone, titrated up to labetalol 400 mg twice daily and restarted on lisinopril 20 mg daily. Patient had episodes of bradycardia to mid 30s during sleep and intermittent in to 2nd pauses on telemetry, strips were reviewed by Cardiology and not clinically significant, okay to continue with labetalol. Blood pressure has been controlled with this regimen to less than 120/80 without orthostatic hypotension or clinically significant bradycardia. Cleared for DC by vascular and appears stable at this time. Repeat CTA of chest abdomen pelvis in 1 month and vascular will arrange for follow-up appointment. They recommended patient to continue blood pressure goal less than 120/80 and heart rate goal between 60/70. He was cleared for discharge by vascular and instructed to keep blood pressure less than 120/80 for 24 hours. He was instructed to continue amlodipine 5 mg daily. Patient was instructed to continue labetalol 400 mg b.i.d.. Patient to continue lisinopril 20 mg daily. Patient was discontinued off spironolactone 25 mg daily. Patient and family counseled extensively on low salt intake with felt machine mechanic. Recommendations from [facility] ANDREA resolved Hypertension continue antihypertensive medication as mentioned above Atrial fibrillation continue Eliquis 5 mg p.o. twice a day. Continue labetalol as mentioned above. Dyslipidemia continue statin. For dementia patient will be referred to Neurology Patient instructed to continue bowel regimen with Colace and senna. 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 See above for additional procedures performed. New medications: None Discontinued medications: Spirlonactone Change medications/dosing: Labetalol 100 mg p.o. b.i.d. was changed to 400 mg p.o. b.i.d.. Although patient is only taking labetalol 100 mg in the morning due to low blood pressures throughout the day and at nighttime knees is not giving the other labetalol. Pending labs: No pending follow-up labs are required at this time Pending diagnostic test: Patient will need a follow-up CTA of chest, abdomen and pelvis in 1 month. Vascular surgery or cardiology will order this per [facility] notes. Any Follow-up Labs required? No follow-up lab are required at this time. Any Follow-up Diagnostic test required? CTA of chest in 1 month. Yfn believes Floor Sanding Machine Operator ir vascular surgeon in [email or web address] will ordered there at next appointment. She will ensure if not she will contact us. How are you feeling? Great Are you in any pain or discomfort? No Pain, CP, SOB. Do you have any questions about your condition or discharge instructions? No additional questions at this time Were you able to get your medications filled? Yes Do you have any questions about your medications? Questions answered at this visit Any referrals required? Neurology, Nephrology Were you able to schedule your follow-up appointment? Yes If home health was ordered, have they contact you? No home health aide was ordered although yfn is a REFRIGERATING ENGINEER HEAD and would like to start getting home health aide for the patient as well Any outpatient services, if so, are you scheduled? No outpatient services were scheduled Are there any additional resources like transportation you might need during her recovery? The niece brings the patient to his appointments and her sister they do not need any help with transportation at this time - [facility]? No interested at this time - REFRIGERATING ENGINEER HEAD? interested in services - Meals on wheels? Not interested at this time. Educational need/resources: What support system do you have? Two nieces. [facility] Medical History (Updated 10/08/24 @ 14:35 by Apolonia Mcfarland PA-C) Hypertension Dementia CKD stage 3a, GFR 45-59 ml/min Atrophy of left kidney ANDREA (acute kidney injury) Myocardial infarction Surgical History H/O inguinal hernia repair H/O heart artery stent Social History Housing: House Alcohol intake: never Patient Tobacco Use Status: Former Tobacco user e-Cigarette/Vaping Use: Never Used Second Hand Smoke Exposure: Yes service: No Current occupational status: retired Cognitive needs: Yes (Cane) Hearing needs: Yes (Hearing aide) Vision needs: No Questionnaire Thrive Questionnaire Date Thrive assessed: 09/06/24 TANYA-7 AMB Questionnaire TANYA-7 Date TANYA - 7 assessed: 09/06/24 Source: Developed by Drs. Tono Arellano, Shauna Mazariegos, Vamsi Petersen and colleagues, with an educational sheila from [employer]. Review of Systems Const Details: Review of Systems - Musculoskeletal: Reports continuous back pain. Physical exam (Primary Care) Vital Signs: Last Vital Signs Temp 97.3 F 10/08/24 12:54 Pulse 70 10/08/24 12:54 BP 120/70 10/08/24 12:54 Pulse Ox 97 10/08/24 12:54 Oxygen Delivery Method Room Air 10/08/24 12:54 Vitals signs have been reviewed. Care Plan Goal for BP management: <120/80 BMI result Body Mass Index 21.8 Tobacco/Smoking Status: Tobacco use Status Tobacco use date assessed 09/06/24 10/08/24 12:54 Patient Tobacco Use Status Former Tobacco user 10/08/24 12:54 e-Cigarette/Vaping Use Never Used 10/08/24 12:54 Thrive Assessment: Date of Thrive Assessment Date Thrive assessed 09/06/24 10/08/24 12:54 Const Other: Appearance: Alert. Oriented X3. No acute distress. Head: Normal external exam. Normocephalic. Atraumatic. Eyes: Pupils are equal, round, and reactive to light. Extraocular movements intact. Conjunctiva and sclera normal. Eyelids normal. Throat: Pharynx normal. Uvula midline. Moist mucous membranes. Neck: Normal inspection. Neck supple. Full range of motion. Cardiovascular: Normal heart rate and rhythm. Heart sound normal. No murmurs noted. Pulses normal throughout. Respiratory: No respiratory distress. Painless inspiration. Breath sounds normal. No wheezes/rales/rhonchi noted. Chest nontender. No accessory muscle usage noted or decreased air movement noted. Back: Full range of motion noted. Skin: Skin warm and dry. Normal skin color. Normal skin turgor. No rashes/lesions/lacerations noted. Extremities: No lower extremity edema. Extremities exhibit normal range of motion. Extremities nontender. Neuro: Oriented X 3. No motor deficit. No sensory deficit. Reflexes normal. Concerns about memory issues noted, possible referral to neurology for further evaluation. Results Reviewed Results Reviewed: - Labs: Normal urine test, COVID negative - Imaging: CT scan showing thoracic aortic aneurysm with chronic dissection and atrophic left kidney Coding Level of Care Code TCM High MDM <= 7 Days Complex EM visit Add On [id number] Diagnoses Hospital discharge follow-up Z09 ANDREA (acute kidney injury) N17.9 Atrophy of left kidney N26.1 Dementia F03.90 CKD stage 3a, GFR 45-59 ml/min N18.31 Aortic dissection, thoracoabdominal I71.03 Hypertension I10 Assessment & Plan Assessment & Plan (1) Hospital discharge follow-up: Code(s): Z09 - Encounter for follow-up examination after completed treatment for conditions other than malignant neoplasm (2) ANDREA (acute kidney injury): Code(s): N17.9 - Acute kidney failure, unspecified Category: Medical (3) Atrophy of left kidney: Code(s): N26.1 - Atrophy of kidney (terminal) Category: Medical (4) Dementia: Code(s): F03.90 - Unspecified dementia, unspecified severity, without behavioral disturbance, psychotic disturbance, mood disturbance, and anxiety Category: Medical (5) CKD stage 3a, GFR 45-59 ml/min: Code(s): N18.31 - Chronic kidney disease, stage 3a Category: Medical (6) Aortic dissection, thoracoabdominal: Code(s): I71.03 - Dissection of thoracoabdominal aorta Category: Medical (7) Hypertension: Code(s): I10 - Essential (primary) hypertension Category: Medical Plan Plan Patient was informed and verbally consented to the use of an ambient scribe for clinic note documentation during this visit. 1. Atrial Fibrillation Atrial fibrillation is stable. Continue electrocardiographic monitoring and evaluate for any ischemic changes. Condition is chronic and stable continue to monitor. 2. Atrophy of kidney (terminal) Found on imaging; refer for nephrology consultation to design appropriate management strategies for renal function preservation. Condition is chronic and stable continue to monitor. 3. Stable Thoracic Aortic Aneurysm With Chronic Dissection CT scan confirmed chronic dissection. Plan follow-up imaging in November, and monitor for symptoms that suggest progression. Condition is chronic and stable continue to monitor. 4. Chronic Kidney Disease Stage 3 Stage 3 confirmed, and nephrology referral for CKD management is indicated. Condition is chronic and stable continue to monitor. 5. Hypertension Current medications include labetalol and amlodipine. Patient directed to continue home blood pressure monitoring and adhere to lifestyle interventions. I explained to the patient and the daughter that I would reach out to Dr. Loera the plywood stock grader to figure out what is the proper labetalol dose that he should be on although I told the daughter that he should continue to stay blood pressure less than 120/80 and if he ever goes above that then she will need to give him the higher dose of the labetalol. The daughter understands this. She will continue giving the 100 labetalol in the morning and if it gets higher after 2 hours of giving the labetalol 100 mg she will give another 100 mg. She does not want to give the labetalol at nighttime unless his blood pressure is greater than 120/80. I am agreeable with this. Condition is chronic and stable will continue to monitor. During the visit, I discussed the confirmed diagnoses of atrial fibrillation and aortic aneurysm with chronic dissection, and stable management involving regular cardiovascular monitoring was planned. We covered the risks of aneurysm progression and the importance of scheduled imaging follow-up in November. Renal health was addressed with nephrology referral, focusing on preserving function and preventing CKD progression. We adjusted antihypertensive medication to ensure optimized blood pressure levels while minimizing hypotensive events. I explained the need for regular home blood pressure monitoring and outlined lifestyle modifications?such as dietary considerations?to enhance hypertension management. Discussions involved the potential of cognitive decline; however, formal cognitive evaluation was not determined necessary based on current function. Orders: Referrals Nephrology Referral N17.9 - Acute kidney failure, unspecified, N18.31 - Chronic kidney disease, stage 3a, N26.1 - Atrophy of kidney (terminal) Neurology Referral F03.90 - Unspecified dementia, unspecified severity, without behavioral disturbance, psychotic disturbance, mood disturbance, and anxiety Home Health Referral E11.9 - Type 2 diabetes mellitus without complications, E78.00 - Pure hypercholesterolemia, unspecified, F03.90 - Unspecified dementia, unspecified severity, without behavioral disturbance, psychotic disturbance, mood disturbance, and anxiety, I25.10 - Atherosclerotic heart disease of cheesh-na coronary artery without angina pectoris, I48.91 - Unspecified atrial fibrillation, I71.00 - Dissection of unspecified site of aorta, I71.03 - Dissection of thoracoabdominal aorta, J44.9 - Chronic obstructive pulmonary disease, unspecified, M05.79 - Rheumatoid arthritis with rheumatoid factor of multiple sites without organ or systems involvement, N26.1 - Atrophy of kidney (terminal), R29.898 - Other symptoms and signs involving the musculoskeletal system Patient Instructions: - Continue current antihypertensive medications as discussed, monitoring blood pressure regularly at home. - Schedule and attend follow-up CT scan of the chest in November to reassess thoracic aortic aneurysm. - Ensure prompt nephrology referral for kidney function monitoring and management. - Adhere to lifestyle modifications, including dietary sodium restriction, and maintain adequate hydration. - Watch for signs of chest pain, dyspnea, or syncope, seeking immediate evaluation if they occur. - Monitor medication for any side effects or unusual symptoms, and report promptly if present.
--- OUTSIDE RECORDS SUMMARY | 2024-10-08 13:16 | XMS_ITS | Clinical Summary ---
Author Organization [facility] Facility Address [address] [facility] [address] [place] [id number] Care Team Providers Care Aircraft Avionics Technician Name Role Phone Unavailable Primary Care Provider Unavailabl e Social History Tobacco Use Types Packs/Day Years Used Date Smoking Tobacco: Never Assessed Sex and Gender Information Value Date Recorded Sex Assigned at Not on file Legal Sex Male 11:40 AM EDT Gender Identity Not on file Sexual Orientation Not on file Plan of Treatment Upcoming Encounters Date Type Department Care Team (Late st Contact Info) Description 01/28/2025 3:30 PM EDT Office Visit [facility] [address] [place] [phone] Pepe Valle, [address] [place] [phone] Health Maintenance Due Date Last Done Comments Pneumococcal Vaccine: 50+ Ye ars (1 of 1 - PCV) 1994 Influenza Vaccine (Season Ended) 2025 Hepatitis B Vaccine Aged Out No longe r eligible based on patient's age to complete this topic Insurance [employer] Dual SNP ([id number])
== END 2024-10-08 13:43 | disposition home or self-care (01) ==
LOC: HO.HMCH 12:41
PROVIDERS: Visit Provider Physician Assistant Medical
DX: I12.9 Hypertensive chronic kidney disease with stage 1 through stage 4 chronic kidney disease, or unspecified chronic kidney disease (principal); N17.9 Acute kidney failure, unspecified; F03.90 Unspecified dementia, unspecified severity, without behavioral disturbance, psychotic disturbance, mood disturbance, and anxiety; N18.31 Chronic kidney disease, stage 3a; I71.03 Dissection of thoracoabdominal aorta; Z09 Encounter for follow-up examination after completed treatment for conditions other than malignant neoplasm

== ENCOUNTER → 2024-10-08 12:41 | Outpatient (BNVA) | payer OTHER, SELFPAY | PROVIDERS: Visit Provider Physician Assistant Medical | DX: Z09 Encounter for follow-up examination after completed treatment for conditions other than malignant neoplasm (principal); F03.90 Unspecified dementia, unspecified severity, without behavioral disturbance, psychotic disturbance, mood disturbance, and anxiety; I12.9 Hypertensive chronic kidney disease with stage 1 through stage 4 chronic kidney disease, or unspecified chronic kidney disease; N18.31 Chronic kidney disease, stage 3a; N17.9 Acute kidney failure, unspecified; I71.03 Dissection of thoracoabdominal aorta | CPT/HCPCS: 99212 ==

== ENCOUNTER 2024-10-22 14:51 | Outpatient (AMB) | payer OTHER, SELFPAY ==
[2024-10-22 14:52] VITALS: BP 128/60; PULSE 79; O2SAT 100; BMI 22.4
--- NOTE | 2024-10-22 14:52 | HO.NEPHOV_ITS ---
Vital Signs 10/22/24 14:52 Height 5 ft 7 in Weight 143 lb 4 oz BMI 22.4 BP 128/60 Blood Pressure Location Lt brachial Position Sitting Pulse 79 Pulse Source Pulse Oximeter Pulse Oximetry (%) 100 Oxygen Delivery Method Room Air Intake Visit Reasons: INP: CKD- Conf Gradall Operator Required: Yes Gradall Operator Language: Gang Sawyer Services: Gradall Operator Present Gradall Operator Name: Shaquille [id number] Information Interpreted: clinical only Accompanied by: Nephew or Niece Allergies No Known Allergies Allergy (Verified 10/22/24 14:55) Do you need a note to return to daycare/school/sports/work: No HPI Comments Details: I had the pleasure of seeing Toan in consultation for atrophic kidney, CKD and hypertension. He is a 79-year-old male who recently was admitted in [facility] when he presented into the emergency department complaining of chest pain. He is known to have aortic aneurysm but went on to have a type B aortic aneurysm dissection. He has Chronic Kidney Disease Stage 3 with an atrophic left kidney. Patient evaluated by vascular surgery during his [facility] admission. He developed ANDREA likely from contrast but his renal function improved with IV fluids. He was resumed on lisinopril on 10/03/2024 when his ANDREA has resolved. Patient's blood pressure has been fairly controlled with amlodipine 5 mg daily and labetalol 100 mg twice daily in addition to ACEI. He is due to have repeat CTA of chest abdomen pelvis in 1 month and vascular surgery in [facility] is arranging it along with outpatient follow-up appointment. His serum creatinine is at baseline now and he does not have any orthostatic symptoms. He denies nausea, vomiting, diarrhea, chest pain, shortness of breath, paroxysmal nocturnal dyspnea, orthopnea, pedal edema, urinary symptoms, fever or hematuria. He does not take any nonsteroidal anti- inflammatories. He feels well. He was accompanied by his niece who is his vegetable loader. [facility] Medical History Hypertension Dementia CKD stage 3a, GFR 45-59 ml/min Atrophy of left kidney ANDREA (acute kidney injury) Myocardial infarction Surgical History H/O inguinal hernia repair H/O heart artery stent Social History Housing: House Alcohol intake: never Patient Tobacco Use Status: Former Tobacco user e-Cigarette/Vaping Use: Never Used Second Hand Smoke Exposure: Yes service: No Current occupational status: retired Cognitive needs: Yes (Cane) Hearing needs: Yes (Hearing aide) Vision needs: No Review of Systems Const All systems reviewed & are unremarkable except as noted in HPI and below Physical Exam Vital Signs: Last Vital Signs Pulse 79 10/22/24 14:52 BP 128/60 10/22/24 14:52 Pulse Ox 100 10/22/24 14:52 Oxygen Delivery Method Room Air 10/22/24 14:52 BMI result Body Mass Index 22.4 Const General: comfortable and no acute distress Orientation/consciousness: patient oriented x3 HEENT Head: Yes normocephalic Mouth: Normal oral and palatal mucosa present Eyes EOM: EOMs intact bilaterally Neck Neck: Yes supple Resp Auscultation: clear to auscultation bilaterally Cardio Jugular venous distension: no JVD Rate: regular rate GI Palpation (GI): Soft to palpation Auscultation: normal bowel sounds General: Yes no CVA tenderness Back/Spine/Pelvis Back: no CVA tenderness Skin General skin exam: no rashes or lesions noted Neuro General: patient oriented x3 and moves all extremities Extrem General: Yes no pedal edema Results Reviewed Nephrology Results: No Data to Display Assessment & Plan Assessment & Plan (1) CKD stage 3a, GFR 45-59 ml/min: Code(s): N18.31 - Chronic kidney disease, stage 3a Category: Medical (2) Atrophy of left kidney: Code(s): N26.1 - Atrophy of kidney (terminal) Category: Medical (3) Hypertension: Code(s): I10 - Essential (primary) hypertension Category: Medical Qualifiers: Hypertension type: renovascular hypertension Qualified Code(s): I15.0 - Renovascular hypertension Plan Toan has CKD due to vascular disease. He has left atrophic kidney. He has history of coronary artery disease and aortic dissection. His blood pressure needs to be maintain at goal. He is tolerating DEISY inhibitor. He avoids nonsteroidal anti-inflammatories and maintain good hydration. I have ordered follow-up lab work. I did not make any medication changes today. All his questions were answered and follow-up appointment was given. Orders: Orders Immunofixation Pnl, Serum 2 Months N18.31 - Chronic kidney disease, stage 3a Creatinine 2 Months N18.31 - Chronic kidney disease, stage 3a Blood Urea Nitrogen 2 Months N18.31 - Chronic kidney disease, stage 3a Electrolytes 2 Months N18.31 - Chronic kidney disease, stage 3a Calcium 2 Months N18.31 - Chronic kidney disease, stage 3a Parathyroid Hormone Intact 2 Months N18.31 - Chronic kidney disease, stage 3a Phosphorus 2 Months N18.31 - Chronic kidney disease, stage 3a Vitamin D 25-OH Total 2 Months N18.31 - Chronic kidney disease, stage 3a Protein Creatinine Ratio, Ur 2 Months N18.31 - Chronic kidney disease, stage 3a UA and rflx microscopic 2 Months N18.31 - Chronic kidney disease, stage 3a Coding Level of Care Code New Pt Level 4 (67786) Diagnoses CKD stage 3a, GFR 45-59 ml/min N18.31 Atrophy of left kidney N26.1 Renovascular hypertension I15.0 Hypertension type: renovascular hypertension
--- OUTSIDE RECORDS SUMMARY | 2024-10-22 15:35 | XMS_ITS | Clinical Summary ---
Author Organization [facility] Facility Address [address] [facility] [address] [place] [address] Care Team Providers Care Dispatcher Relay Name Role Phone Unavailable Primary Care Provider [...] Visit [facility] [address] [place] [phone] Pepe Valle, [address] [place] [address] Health Maintenance Due Date Last Done Comments Pneumococcal Vaccine: 50+ Ye ars (1 of 1 - PCV) 1994 Influenza Vaccine (Season Ended) 2025 Hepatitis B Vaccine Aged Out No longe r eligible based on patient's age to complete this topic Insurance [employer] Dual SNP ([id number])
== END 2024-10-22 15:24 | disposition home or self-care (01) ==
LOC: HO.HKA 14:52
PROVIDERS: Referring Provider Physician Assistant Medical; Visit Provider Internal Medicine Nephrology
DX: N18.31 Chronic kidney disease, stage 3a (principal); N26.1 Atrophy of kidney (terminal); I15.0 Renovascular hypertension
CPT/HCPCS: 99204

== ENCOUNTER → 2024-10-22 14:51 | Outpatient (BNVA) | payer OTHER, SELFPAY | PROVIDERS: Referring Provider Physician Assistant Medical; Visit Provider Internal Medicine Nephrology | DX: I15.0 Renovascular hypertension (principal); N18.31 Chronic kidney disease, stage 3a; N26.1 Atrophy of kidney (terminal) | CPT/HCPCS: 99202 ==

== ENCOUNTER 2024-11-05 11:02 | Outpatient (AMB) | payer OTHER, SELFPAY ==
[2024-11-05 11:05] VITALS: BP 116/78; BMI 22.2
--- NOTE | 2024-11-05 11:05 | MHC.OFFVIS ---
Vital Signs 11/05/24 11:05 Height 5 ft 7 in Weight 142 lb BMI 22.2 BP 116/78 Blood Pressure Location Rt brachial Position Sitting Intake Visit Reasons: ZCF-Nxlarngp-Wexl w/niece Intake Note: Patient referred in house by Apolonia Mcfarland for dementia Manager Technical Sales Required: Yes Manager Technical Sales Services: Manager Technical Sales Present Manager Technical Sales Name: kamar russell Information Interpreted: non-clinical & clinical Allergies No Known Allergies Allergy (Verified 11/05/24 11:08) Medication List - Last Reconciled 11/05/24 by Bere Dooley MD amlodipine 5 mg PO DAILY apixaban (Eliquis) 5 mg PO ONCE atorvastatin 40 mg PO BEDTIME finasteride 5 mg PO DAILY 90 days heating pads As directed hospital bed As directed labetalol 50 mg (1/2 x 100 mg) PO BID 90 days levothyroxine 25 mcg PO DAILY lisinopril 20 mg PO DAILY [quad cane As directed] Shower Chair As directed [walker As directed for long distance] walker (Ultra-Light Rollator misc) As directed HPI Comments Details: 79y/o male comes for evaluation of cognitive difficulties. a certified diagnostic medical sonographer was present during this interview.He came to [place] in Feb 2024 from [place] where he was living alone. His family members noticed that he was having trouble with memory . He was evaluated by his PCP and he was admitted at [facility] for chest pain and had memory evaluation. He is confused with names , time and place. he has short term memory difficulties.He can take care of his personal hygiene but needs supervision. he denies hallucinations or delusions he had a head injury more than 30 years ago - .no further details was available. He was a heavy alcoholic and a smoker.He stopped consuming alcohol 20 years ago. No depression or anxiety and sleeps good. he does not drive . 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 He went to school upto 8th grade. [facility] Medical History Hypertension Dementia CKD stage 3a, GFR 45-59 ml/min Atrophy of left kidney ANDREA (acute kidney injury) Myocardial infarction Surgical History H/O inguinal hernia repair H/O heart artery stent Social History Housing: House Alcohol intake: never Patient Tobacco Use Status: Former Tobacco user e-Cigarette/Vaping Use: Never Used Second Hand Smoke Exposure: Yes service: No Current occupational status: retired Cognitive needs: Yes (Cane) Hearing needs: Yes (Hearing aide) Vision needs: No Physical Exam Vital Signs: Last Vital Signs BP 116/78 11/05/24 11:05 BMI result Body Mass Index 22.2 Const General: cooperative and comfortable Nutritional Appearance: average body habitus Orientation/consciousness: oriented to person and oriented to time Eyes Pupils: Equal, round and reactive pupils present Neuro General: oriented to person, oriented to time, moves all extremities and no focal motor deficits Cranial nerves: Yes Equal, round and reactive pupils present, Yes Bilaterally intact EOM present, Yes Nystagmus not present, Yes Normal facial strength present and Yes Midline tongue present Gait exam (Neuro): Antalgic gait present Motor exam (neuro): 5/5 motor strength present throughout and Normal motor muscle tone present throughout Deep tendon reflexes (DTR's): Right triceps reflex intensity grade: 3+, Left triceps reflex intensity grade: 3+, Rt Biceps (C5, C6): 3+, Left biceps reflex intensity grade: 3+, Right brachioradialis reflex intensity grade: 3+, Left brachioradialis reflex intensity grade: 3+, Right patellar reflex intensity grade: 3+ and Left patellar reflex intensity grade: 3+ Coordination: [id number] test normal Orientation What is the (year) (season) (date) (day) (month)?: year, season, date, day and month Where are we (state) (county) (town or city) (hospital) (floor)?: town or city and hospital/clinic Registration Name of 3 unrelated objects clearly and slowly, then ask patient to repeat all 3 of them. (1st repeat determines score. Make sure they can repeat all three): object 1, object 2 and object 3 Attention & Calculation (CHOOSE ONE) Spell WORLD backwards (DLROW): 5 letters Recall Ask patient to repeat the 3 items from question #3.: object 1 and object 2 Language Show patient a wristwatch & ask what it is. Repeat for pencil.: watch and pencil Ask the patient to repeat the phrase 'No ifs, ands, or buts' after you.: correct Ask the patient to 'take a piece of paper with their right hand' 'fold paper in half' 'place paper on floor': take paper in right hand, fold paper in half and place paper on floor Print the sentence 'CLOSE YOUR EYES' on a piece. If patient actually closes eyes then score.: followed written direction Give patient a blank piece of paper & ask to write a sentence. 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 Orders: Orders MR head/brain wo con Today R41.89 - Other symptoms and signs involving cognitive functions and awareness Medications: New memantine 7 mg PO DAILY 30 ea 0RF Coding Level of Care Code New Pt Level 4 (22188) Diagnoses Cognitive impairment R41.89
--- OUTSIDE RECORDS SUMMARY | 2024-11-05 11:34 | XMS_ITS | Referral Summary ---
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 09/03/2024 Active lisinopriL (PRINIVIL,ZESTRI L) 20 mg tablet Take 20 mg by mouth once a day. 09/03/2024 Active finasteride (PROSCAR) 5 mg tablet Take 5 mg by mouth once a day. 09/13/2024 Active labetaloL (NORMODYNE) 200 mg tablet Take 200 mg by mouth 2 times a day. 10/04/2024 Active Eliquis 5 mg tablet Take 5 mg by mouth every 12 hours. 10/02/2024 Active amLODIPine (NORVASC) 5 mg tablet Take 5 mg by mouth once a day. 09/03/2024 Active levothyroxine sodium (TIROSINT) 25 mcg capsule Take 25 mcg by mouth once a day. 07/04/2024 Active Social History Tobacco Use Types Packs/Day Years Used Date Smoking Tobacco: Never Assessed Sex and Gender Information Value Date Recorded Sex Assigned at Not on file Legal Sex Male 11:59 AM EDT Gender Identity Not on file Sexual Orientation Not on file Last Filed Vital Signs Vital Sign Reading Time Taken Comments Blood Pressure 137/84 10/25/2024 1:29 PM EDT Pulse 68 10/25/2024 1:29 PM EDT Temperature 36.8 ??C (98.2 ??F) 10/25/2024 1:29 PM ED T Respiratory Rate 16 10/25/2024 1:29 PM EDT Oxygen Saturation 99% 10/25/2024 1:29 PM EDT Inhaled Oxygen Concentration - - Weight 64 kg (141 lb) 10/25/2024 1:29 PM EDT Height - - Body Mass Index - - Plan of Treatment Upcoming Encounters Date Type Department Care Team (Late st Contact Info) Description 10/24/2025 12:45 PM EDT Appointment [facility] CT Scan [address] [place], [place] [phone] Alejandro Kitchen MD [address] [place], [place] [phone] 10/24/2025 1:40 PM EDT Follow-Up [facility] Building Vascular Surgery [address] [place] [address] Fur Tanner: Alejandro Thomas MD [address] [place] [address] Insurance [facility] [employer] Care Teams Senior Media Planner Relationship Specialty Start Date End Date [address] [place] [id number] TRAFFIC MAINTENANCE SUPERVISOR/PA Student Internal Medicine 09/15/24
--- OUTSIDE RECORDS SUMMARY | 2024-11-05 11:34 | XMS_ITS | Clinical Summary ---
Author Organization [facility] Facility Address [address] [facility] [address] [place] [address] Care Team Providers Care Corporate Meeting Planner Name Role Phone Unavailable Primary Care [...] Visit [facility] [address] [place] [phone] Pepe Valle, [address] [place] [address] Health Maintenance Due Date Last Done Comments Pneumococcal Vaccine: 50+ Ye ars (1 of 1 - PCV) 1994 Influenza Vaccine (Season Ended) 2025 Hepatitis B Vaccine Aged Out No longe r eligible based on patient's age to complete this topic Insurance [employer] Dual SNP ([id number])
--- OUTSIDE RECORDS SUMMARY | 2024-11-05 11:34 | XMS_ITS | Clinical Summary ---
Author Organization [facility] Address [address] [place] [address] Care Team Providers Care Liquid Natural Gas Plant Operator Name Role Phone Unavailable Primary Care Provider Unavailabl e Medications atorvastatin (LIPITOR) 40 mg tablet Take [...] by mouth once a day. 07/04/2024 Active Encounters Date Type Department Care Team Description 10/25/2024 1:00 PM EDT Office Visit [facility] Building Vascular Surgery [address] [place] [address] Gastroenterology Manager: Alejandro Thomas MD Dissection of descending thoracic aorta (HCC) (Primary Dx) 09/03/2024 Orders Only [facility] - External Imaging [address] [place] [address] Radiology, External from Last 3 Months Social History Tobacco Use Types Packs/Day Years [...] Info) Description 10/24/2025 12:45 PM EDT Appointment [facility] CT Scan [address] [place], [place] [phone] Alejandro Kitchen MD [address] [place], [place] [phone] 10/24/2025 1:40 PM EDT Follow-Up [facility] ACC Building Vascular Surgery [address] [place] [address] Gastroenterology Manager: Alejandro Thomas MD [address] [place] [address] Health Maintenance Due Date Last Done Comments DTaP,Tdap,and Td Vaccines (1 - Tdap) 1966 Pneumococcal Vaccine: 50+ Ye ars (1 of 1 - PCV) 1994 Zoster Vaccines (1 of 2) 1994 RSV Vaccine (60+ years old a nd patients) (1 - 1-dose 75+ series) 2019 COVID-19 Vaccine (1 - 2023-2 5 season) 2024 Alcohol/Substance Use Screening 06/30/2024 Depression Screening and Follow-Up 06/30/2024 Health Care Proxy Review 06/30/2024 Social Drivers of Health Emily ual Screening 06/30/2024 Influenza Vaccine (Season Ended) 2025 Hepatitis B Vaccines Aged Out No long er eligible based on patient's age to complete this topic Insurance [facility] EDITA CORTEZ [id number] Care Teams Liquid Natural Gas Plant Operator Relationship Specialty Start Date End Date [address] [place] [address] ASPHALT PLANT OPERATOR/PA Student Internal Medicine 09/15/24
== END 2024-11-05 12:03 | disposition home or self-care (01) ==
LOC: HO.HSMS 11:03
PROVIDERS: Visit Provider Psychiatry & Neurology Neurology
DX: R41.89 Other symptoms and signs involving cognitive functions and awareness (principal)
CPT/HCPCS: 99204

== ENCOUNTER → 2024-11-05 11:02 | Outpatient (BNVA) | payer OTHER, SELFPAY | PROVIDERS: Visit Provider Psychiatry & Neurology Neurology | DX: R41.89 Other symptoms and signs involving cognitive functions and awareness (principal) | CPT/HCPCS: 99202 ==

== ENCOUNTER → 2024-11-08 08:17 | Outpatient (REF) | payer OTHER, SELFPAY ==
--- OUTSIDE RECORDS SUMMARY | 2024-11-08 08:21 | XMS_ITS | Referral Summary ---
Author Organization [facility] Address [address] [phone] Care Team Providers Care Services Clerk Name Role Phone Unavailable Primary Care Provider Unavailabl e Encounters Date Type Department Care Team Description 10/25/2024 1:00 PM EDT Office Visit [facility] Vascular Surgery [address] [place] [address] Continuous Vulcanizing Machine Operator: Alejandro Thomas MD Dissection of descending thoracic aorta (HCC) (Primary Dx) 09/03/2024 Orders Only [facility] - External Imaging [address] [place] [address] Radiology, External from Last 3 Months Medications [...] Info) Description 10/24/2025 12:45 PM EDT Appointment [facility] CT Scan [address] [place], [place] [phone] Alejandro Kitchen MD [address] [place], [place] [phone] 10/24/2025 1:40 PM EDT Follow-Up [facility] ACC Building Vascular Surgery [address] [place] [address] Continuous Vulcanizing Machine Operator: Alejandro Thomas MD [address] [place] [address] Insurance [facility] [employer] Care Teams Services Clerk Relationship Specialty Start Date End Date [address] [place] [phone] ATTENDING RADIOLOGIST/PA Student Internal Medicine 09/15/24
--- OUTSIDE RECORDS SUMMARY | 2024-11-08 08:21 | XMS_ITS | Clinical Summary ---
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) 09/03/2024 Orders Only [facility] - External Imaging [address] [place] [address] Radiology, External from Last 3 Months Social [...] Info) Description 10/24/2025 12:45 PM EDT Appointment [facility] CT Scan [address] [place], [place] [phone] Alejandro Kitchen MD [address] [place], [place] [phone] 10/24/2025 1:40 PM EDT Follow-Up [facility] ACC Building Vascular Surgery [address] [place] [address] Pit Crane Operator: Alejandro Thomas MD [address] [place] [address] Health Maintenance Due Date Last [...] patient's age to complete this topic Insurance [facility] EDIT[place]TE[place] [id number] Care Teams Law Office Receptionist Relationship Specialty Start Date End Date [address] [place]. [address] ARBOR PRESS OPERATOR/PA Student Internal Medicine 09/15/24
--- OUTSIDE RECORDS SUMMARY | 2024-11-08 08:21 | XMS_ITS | Clinical Summary ---
Author Organization [facility] Facility Address [address] [facility] [address] [place] [address] Care Team Providers Care Barrel Assembler Name Role Phone Unavailable Primary Care Provider [...] Visit [facility] [address] [place] [phone] Pepe Valle, [address] [place] [address] Health Maintenance Due Date Last Done Comments Pneumococcal Vaccine: 50+ Ye ars (1 of 1 - PCV) 1994 Influenza Vaccine (Season Ended) 2025 Hepatitis B Vaccine Aged Out No longe r eligible based on patient's age to complete this topic Insurance [employer] Dual SNP ([id number])
--- NOTE | 2024-11-08 08:27 | CA_ITS ---
Acquisition Time: 2024-11-08 08:53:11 Total Exercise Time: 00:02:00 Test Indications: Abnormal ECG CAD AFIB Medications: SEE H&P Protocol: LEXISCAN Max HR: 122 BPM 87% of Pred: 140 BPM Max BP: 128/64 mmHG Max Work Load: 1.0 METS Pharmacological stress test with Lexiscan while pt swings his legs in chair, with reports of dizziness, without any arrythmias, with normotensive response to injection. Nondiagnostic EKG for ischemia. In recovery, pt treated with IVP Aminophylline 75 mg to reverse Lexiscan after which pt feeling back to baseline. Nuclear images pending. Test reviewed with Dr. Loera. Referred By: Tay Loera Electronically Signed By: Cruz Lee
== END ==
LOC: HO.CARD 08:17
PROVIDERS: Visit Provider Internal Medicine Cardiovascular Disease
DX: I25.10 Atherosclerotic heart disease of native coronary artery without angina pectoris (principal); I48.91 Unspecified atrial fibrillation
CPT/HCPCS: 78452; 93017; 93225; A9500; J0280; J2785

== ENCOUNTER → 2024-11-08 08:27 | Outpatient (BNV) | payer OTHER, SELFPAY | DX: R94.31 Abnormal electrocardiogram [ECG] [EKG] (principal); I25.10 Atherosclerotic heart disease of native coronary artery without angina pectoris | CPT/HCPCS: 78452; 93016; 93018 ==

== ENCOUNTER → 2024-11-20 08:44 | Outpatient (BNV) | payer OTHER, SELFPAY | PROVIDERS: Visit Provider Radiology Diagnostic Radiology | DX: G93.89 Other specified disorders of brain (principal) | CPT/HCPCS: 70551 ==

== ENCOUNTER 2024-11-20 08:45 | Outpatient (REF) | payer OTHER, SELFPAY ==
--- NOTE | ~2024-11-20 | MR_ITS ---
CLINICAL HISTORY: R41.89 - Other symptoms and signs involving cognitive functions and awar... MR Brain without gadolinium Comparison: None Findings: No restricted diffusion. No intra-axial mass or hemorrhage. There is moderate cortical atrophy. There is right parietal encephalomalacia. There is a remote left cerebellar infarct. No midline shift. No hydrocephalus. Vascular flow voids are intact. Orbital contents are unremarkable. The sinuses and mastoid air cells are clear. No focal bone lesion. Microvascular changes are noted. IMPRESSION: No acute findings. Significant right parietal encephalomalacia. Remote left cerebellar infarct. Involutional changes. This document has been electronically signed by: Rolando aMuricio MD on 11/20/2024 10:04:57
== END 2024-11-20 08:46 | disposition home or self-care (01) ==
LOC: HO.MRI 08:45
PROVIDERS: Visit Provider Psychiatry & Neurology Neurology
DX: R41.89 Other symptoms and signs involving cognitive functions and awareness (principal)
CPT/HCPCS: 70551

== ENCOUNTER 2024-12-01 13:44 | Outpatient (AMB) | payer OTHER, SELFPAY ==
[2024-12-01 13:51] VITALS: BP 124/80; PULSE 76; BMI 22.4
--- NOTE | 2024-12-01 13:51 | A.OFFVIS_ITS ---
Vital Signs 12/01/24 13:51 Height 5 ft 7 in Weight 143 lb 4.807 oz BMI 22.4 BP 124/80 Blood Pressure Location Lt brachial Position Sitting Pulse 76 Intake Visit Reasons: 2-3 m follow up/echo/holter Intake Note: 2-3 month follow-up after echo and holter feeling good Damper Fitter Required: Yes Damper Fitter Name: jacobo Calixto Workplace Relations Adviser: Workplace Relations Adviser Present Accompanied by: niece Allergies No Known Allergies Allergy (Verified 11/05/24 11:08) Medication List - Last Reconciled 12/01/24 by Cruz Lee NP amlodipine 5 mg PO DAILY apixaban (Eliquis) 5 mg PO ONCE atorvastatin 40 mg PO BEDTIME finasteride 5 mg PO DAILY 90 days heating pads As directed hospital bed As directed labetalol 50 mg (1/2 x 100 mg) PO BID 90 days levothyroxine 25 mcg PO DAILY lisinopril 20 mg PO DAILY memantine 7 mg PO DAILY [quad cane As directed] Shower Chair As directed [walker As directed for long distance] walker (Ultra-Light Rollator misc) As directed HPI Comments Details: This is an 79-year-old male patient coming in for a follow-up visit, accompanied by his niece. The supervisor securities vault was used throughout the visit. Patient w as previously seen in the office for establishing care since moving from [place] in in February. Patient reports a history of [place] status post PCI back in [place] for which we have no current records. 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 Patient also s tates that he has a history of heart failure and stroke with left hemiparesis and is currently walking with a cane. Patient is not really aware of all of the dates with these. Patient underwent a myocardial perfusion study subsequent to this visit to assess for ischemic changes. Today, patient reports feeling well overall and denies any cardiac symptoms including exertional chest pain, shortness of breath, palpitations, dizziness, orthopnea, PND, leg edema, presyncope, or syncope. Patient affirms his compliance with all of his medications. [facility] Medical History Cognitive impairment Hypertension Dementia CKD stage 3a, GFR 45-59 ml/min Atrophy of left kidney ANDREA (acute kidney injury) Myocardial infarction Surgical History H/O inguinal hernia repair H/O heart artery stent Social History Housing: House Alcohol intake: never Patient Tobacco Use Status: Former Tobacco user e-Cigarette/Vaping Use: Never Used Second Hand Smoke Exposure: Yes service: No Current occupational status: retired Cognitive needs: Yes (Cane) Hearing needs: Yes (Hearing aide) Vision needs: No Review of Systems Const Denies chills, Denies fatigue, Denies fever(s), Denies frequent falls, Denies weakness, Denies weight gain and Denies weight loss ENT Denies dizziness Card Denies chest pain, Denies leg edema, Denies lightheadedness, Denies palpitations, Denies dyspnea, Denies dyspnea on exertion, Denies orthopnea and Denies other (loss of consciousness) Resp Denies cough, Denies dyspnea and Denies dyspnea on exertion GI Denies hematochezia and Denies change in stool character Musc Denies abnormal gait, Denies muscle weakness, Denies numbness, Denies radiating pain into limb and Denies tingling Neuro Denies abnormal gait, Denies dizziness, Denies frequent falls, Denies numbness, Denies tingling and Denies weakness Endo Denies fatigue and Denies palpitations Physical Exam Vital Signs: Last Vital Signs Pulse 76 12/01/24 13:51 BP 124/80 12/01/24 13:51 BMI result Body Mass Index 22.4 Const General: cooperative, healthy appearing, comfortable and no acute distress Orientation/consciousness: patient oriented x3 HEENT Head: Yes normal to inspection Neck Neck: Yes normal visual inspection, Yes trachea midline and Yes supple Chest Chest palpation & inspection: normal inspection of the chest Resp Effort & Inspection: normal respiratory effort Auscultation: clear to auscultation bilaterally, no crackles, no rales, no rhonchi and no wheezes Cardio Jugular venous distension: no JVD Palpation: normal PMI Rate: regular rate Rhythm: abnormal rhythm Heart sounds: S1 normal heart sound present, S2 normal heart sound present, no click, no gallops, no murmurs and no rubs Peripheral pulses: Peripheral pulses 2+ throughout GI Inspection: Yes normal to inspection Palpation (GI): Soft to palpation Auscultation: normal bowel sounds Skin General skin exam: no rashes or lesions noted Neuro General: patient oriented x3 Extrem General: Yes normal to inspection, No no pedal edema and No calf tenderness Psych Appearance: grossly normal Mental Status: mental status grossly normal Speech and movement: Normal speech and movement present Assessment & Plan Assessment & Plan (1) CAD (coronary artery disease): Code(s): I25.10 - Atherosclerotic heart disease of [place] coronary artery without angina pectoris Category: Medical Plan: 11/08/2024-patient underwent a vasodilating myocardial perfusion study that was normal. History of [place] status post PCI in [place], no records at this time. We will try to obtain his old records and have advised the niece to check with the his previous office. Continue Eliquis therapy. Most recent LDL at 71. Continue statin therapy with an LDL goal less than 70. (2) Afib: Code(s): I48.91 - Unspecified atrial fibrillation Category: Medical Plan: 11/08/2024-Holter monitor showed baseline atrial fibrillation with average heart rate of 65 beats per minute, with rare PVCs. Patient with a history of chronic atrial fibrillation. Continue Eliquis therapy for full anticoagulation. Denies any signs of bleeding or falls. Continue labetalol for rate control approach. We will monitor labs periodically. (3) Heart failure: Code(s): I50.9 - Heart failure, unspecified Category: Medical Plan: Patient reports a history of heart failure, not on any diuretic therapy. Previously an echo was ordered but never completed. We will try to set this again for the patient. Clinically stable and euvolemic. Discussed signs and symptoms to look for with heart failure. Advised low-salt diet, daily weight monitoring, and vascular risk factor management. (4) Hypertension: Code(s): I10 - Essential (primary) hypertension Category: Medical Qualifiers: Hypertension type: renovascular hypertension Qualified Code(s): I15.0 - Renovascular hypertension Plan: Blood pressure today is well-controlled. Continue current regimen. Advised monitoring blood pressures at home with an ideal goal less than 130/80. Advised heart healthy diet, exercise as tolerated, med compliance, and aggressive management of vascular risk factors. Follow-up in 6 months. In the interim, patient will call the office with any concerns or change in symptoms. Advised patient to seek ER care in case of exertional chest pain not resolved with rest. This note was generated using voice recognition software. While every effort has been made to ensure accuracy and proper biztalk software developer, there may be occasional errors that could affect the content or meaning of the described symptoms. Orders: Orders CA echo transthoracic complete 5 Months I48.91 - Unspecified atrial fibrill ation, I50.9 - Heart failure, unspecified Coding Level of Care Code Est Pt Level 4 (40784) Complex EM visit Add On G2211 Diagnoses CAD (coronary artery disease) I25.10 Afib I48.91 Heart failure I50.9 Renovascular hypertension I15.0 Hypertension type: renovascular hypertension Time Spent (min) 34 Comment Time spent in reviewing the chart, test results, assessment, counseling and documentation.
--- OUTSIDE RECORDS SUMMARY | 2024-12-01 13:56 | XMS_ITS | Referral Summary ---
Author Organization [facility] Address [address] [id number] Care Team Providers Care Branch Lead Name Role Phone Unavailable Primary Care Provider Unavailabl e Encounters Date Type Department Care Team Description 10/25/2024 1:00 PM EDT Office Visit [facility] Vascular Surgery [address] [place] [address] Sales Ledger Administrator: Alejandro Thomas MD Dissection of descending thoracic aorta (HCC) (Primary Dx) 09/03/2024 Orders Only [facility] - External Imaging [address] [place] [address] Radiology, External from Last 3 Months Medications [...] Info) Description 10/24/2025 12:45 PM EDT Appointment [facility] CT Scan [address] [place], [place] [phone] Alejandro Kitchen MD [address] [place], [place] [phone] 10/24/2025 1:40 PM EDT Follow-Up [facility] ACC Building Vascular Surgery [address] [place] [address] Sales Ledger Administrator: Alejandro Thomas MD [address] [place] [phone] Insurance [facility] [employer] Care Teams Branch Lead Relationship Specialty Start Date End Date [address] [place] [id number] WAREHOUSE FOREMAN/PA Student Internal Medicine 09/15/24
== END 2024-12-01 14:15 | disposition home or self-care (01) ==
LOC: HO.HCS 13:45
DX: I25.10 Atherosclerotic heart disease of native coronary artery without angina pectoris (principal); I48.91 Unspecified atrial fibrillation; I50.9 Heart failure, unspecified; I15.0 Renovascular hypertension
CPT/HCPCS: 99214; G2211

== ENCOUNTER → 2024-12-01 13:44 | Outpatient (BNVA) | payer OTHER, SELFPAY | DX: I25.10 Atherosclerotic heart disease of native coronary artery without angina pectoris (principal); I48.91 Unspecified atrial fibrillation; I50.9 Heart failure, unspecified; I15.0 Renovascular hypertension | CPT/HCPCS: 99212 ==

== ENCOUNTER 2024-12-07 10:58 | Outpatient (AMB) | payer OTHER, SELFPAY ==
[2024-12-07 11:03] VITALS: BP 142/90; PULSE 90; TEMP 36.1; O2SAT 98; BMI 22.6
--- NOTE | 2024-12-07 11:03 | MHC.PC.OV ---
Vital Signs 12/07/24 11:03 12/07/24 11:27 Height 5 ft 7 in Weight 144 lb 6 oz BMI 22.6 BP 142/90 H 126/88 Blood Pressure Location Lt brachial Lt brachial Position Sitting Sitting Pulse 90 Pulse Source Pulse Oximeter Temp 97.0 F Temp Source Temporal Artery Scan Pulse Oximetry (%) 98 Oxygen Delivery Method Room Air Intake Visit Reasons: f/u CAD/DM needs A1c Accompanied by: Nephew or Niece Allergies No Known Allergies Allergy (Verified 12/07/24 11:18) Medication List - Last Reconciled 12/07/24 by Ashlie Vitale PA-C amlodipine 5 mg PO DAILY apixaban (Eliquis) 5 mg PO ONCE atorvastatin 40 mg PO BEDTIME finasteride 5 mg PO DAILY 90 days heating pads As directed hospital bed As directed labetalol 50 mg (1/2 x 100 mg) PO BID 90 days levothyroxine 25 mcg PO DAILY lisinopril 20 mg PO DAILY memantine 7 mg PO DAILY [quad cane As directed] Shower Chair As directed [walker As directed for long distance] walker (Ultra-Light Rollator misc) As directed Tobacco use date assessed: 12/07/24 Fall risk assessment: 1 Fall in past year Last assessed Fall Risk: 12/07/24 Dental Screening Dental Screen Date: 12/07/24 Did you have a dental visit in the last 12 months?: No Did you have a dental problem in the last 6 months where you did not have access to dental care?: No Was dental information given to patient?: Yes HPI f/u CAD/DM needs A1c HPI Details 79-year-old male with past medical history of aortic dissection, hypothyroidism, AFib, hypertension, coronary artery disease, history of [place], rheumatoid arthritis, COPD, diabetes, heart failure last seen 09/2024 coming in for follow up. In review of the notes, patient was referred to Nephrology at his last visit, follow up imaging for aortic dissection in November. Patient was seen by Cardiology 12/01/2024 continue on statin with LDL goal less than 70, continue with Eliquis for full anticoagulation for atrial fibrillation, echocardiogram was ordered to monitor heart failure and advised to follow up in 6 months. Patient was seen by Neurology 11/05/2024 started on memantine an MRI of the brain was ordered. Patient was seen by Nephrology 09/2024 advised to stay well hydrated and ordered for blood work. parking enforcement technician Fran [id number] was used for the duration of this visit. Patient presents today with his niece. He states he has been taking the memantine and feels improvement in his overall cognitive function and memory. He takes his blood pressure at home daily and has been in the 120 systolic over 70 diastolic range without any values exceeding 140/90. He did not take his blood pressure medication this morning because he did not have breakfast. He has been receiving VNA services seeing the social work instructor and nurse weekly. He has no acute concerns today. [facility] Medical History Cognitive impairment Hypertension Dementia CKD stage 3a, GFR 45-59 ml/min Atrophy of left kidney ANDREA (acute kidney injury) Myocardial infarction Surgical History H/O inguinal hernia repair H/O heart artery stent Social History Housing: House Alcohol intake: never Patient Tobacco Use Status: Former Tobacco user e-Cigarette/Vaping Use: Never Used Second Hand Smoke Exposure: Yes service: No Current occupational status: retired Cognitive needs: Yes (Cane) Hearing needs: Yes (Hearing aide) Vision needs: No Questionnaire PHQ-9 Over the last 2 weeks, how often have you been bothered by any of the following problems? 1. Little interest or pleasure in doing things: not at all 2. Feeling down, depressed, or hopeless: not at all 3. Trouble falling or staying asleep, or sleeping too much: not at all 4. Feeling tired or having little energy: not at all 5. Poor appetite or overeating: not at all 6. Feeling bad about yourself - or that you are a failure or have let yourself or your family down: not at all 7. Trouble concentrating on things, such as reading the newspaper or watching television: not at all 8. Moving or speaking so slowly that other people could have noticed. Or the opposite - being so fidgety or restless that you have been moving around a lot more than usual: not at all 9. Thoughts that you would be better off or of hurting yourself in some way: not at all Total score: 0 Depression Screening Interpretation: Negative Depression Screening Done: Yes Source: Developed by Drs. Tono Arellano, Shauna Mazariegos, Vamsi Petersen and colleagues, with an educational sheila from [employer]. Thrive Questionnaire Date Thrive assessed: 12/07/24 I am a: Patient What is your living situation today?: I have a steady place to live Within the past 12 months, did the food you bought not last and you didn't have the money to get more?: Never true Within the past 12 months, did you worry whether your food would run out before you got money to buy more?: Never true Do you have trouble paying for medicines?: No Do you have trouble getting transportation to medical appointments?: No Do you have trouble paying your heating and electricity bill?: No Do you have trouble taking care of your child, family member or friend?: No Do you have trouble with day-to-day activities such as bathing, preparing meals, shopping, managing finances, etc.?: No Are you currently unemployed and looking for a job?: No Are you interested in more education?: No Please select the resources that you would like help with: None Currently or been in a relationship where the following occur: No concerns reported THRIVE Score: 0 AUDIT C Alcohol Use Questionnaire (AUDIT-C) 1. How often do you have a drink containing alcohol?: Never 3. How often do you have six or more drinks on one occasion?: Never Total Score: 0 TANYA-7 AMB Questionnaire TANYA-7 Date TANYA - 7 assessed: 09/06/24 Feeling nervous, anxious, or on edge: 0 = Not at all Not being able to stop or control worryin = Not at all Worrying too much about different things: 0 = Not at all Trouble relaxin = Not at all Being so restless that it is hard to sit still: 0 = Not at all Becoming easily annoyed or irritable: 0 = Not at all Feeling afraid as if something awful might happen: 0 = Not at all Total TANYA-7 score (0-4 normal; 5-9 mild; 10-14 moderate; 15-21 severe): 0 Source: Developed by Shauna Garcia. Yair, Vamsi Petersen and colleagues, with an educational sheila from [employer]. Review of Systems Const Denies body aches, Denies chills, Denies fever(s), Denies headache(s) and Denies poor appetite Eyes Reports no additional complaints ENT Denies dysphagia, Denies dizziness, Denies headache(s) and Denies odynophagia Card Denies chest pain, Denies syncope, Denies edema, Denies irregular heart rhythm, Denies lightheadedness and Denies dyspnea Resp Denies cough and Denies dyspnea GI Denies abdominal pain, Denies constipation, Denies dysphagia, Denies diarrhea, Denies nausea, Denies odynophagia and Denies vomiting Reports no additional complaints Musc Reports no additional complaints and Denies abnormal gait Skin/Breast Reports system reviewed and no additional complaints, except as documented Neuro Denies abnormal gait, Denies dizziness, Denies syncope and Denies headache(s) Psych Reports no additional complaints Physical exam (Primary Care) Tobacco/Smoking Status: Tobacco use Status Tobacco use date assessed 09/06/24 12/07/24 11:03 Patient Tobacco Use Status Former Tobacco user 12/07/24 11:03 e-Cigarette/Vaping Use Never Used 12/07/24 11:03 PHQ-9: PHQ-9 Score PHQ-9: Total score 0 12/07/24 11:03 Depression Screening Interpretation: Negative Thrive Assessment: Date of Thrive Assessment Date Thrive assessed 09/06/24 12/07/24 11:03 Currently or been in a relationship where the following occur: No concerns reported Const General: cooperative, healthy appearing, comfortable and no acute distress Orientation/consciousness: patient oriented x3 HENMT Head: Yes normocephalic Ears: hearing grossly normal bilaterally General nose exam: Normal external nose present Eyes General: appearance normal, both eyes and all related structures Conjunctivae: conjunctivae normal Neck Neck: Yes full ROM and Yes no lymphadenopathy Resp Effort & Inspection: normal respiratory effort Auscultation: clear to auscultation bilaterally, no crackles, no rales, no rhonchi and no wheezes Cardio Rate: regular rate Rhythm: regular rhythm Skin General skin exam: no rashes or lesions noted Neuro General: patient oriented x3 Gait exam (Neuro): Normal gait present Extrem General: Yes normal to inspection, Yes full ROM and No edema Psych Affect: normal affect Attitude: cooperative Insight: Good insight present (Psych) Judgement: Good judgement present (Psych) Results AMB Hemoglobin A1c AMB Hemoglobin A1c 5.3 % Last Edit by Reina Erwin CMA on 12/07/24 11:13 Coding Level of Care Code Est Pt Level 3 (81483) Diagnoses Hypercholesterolemia E78.00 Afib I48.91 Diabetes E11.9 Heart failure I50.9 Cognitive impairment R41.89 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 Triglyceride goal of less than 150 and LDL goal of less than 70. Continue on atorvastatin 40 (2) Afib: Code(s): I48.91 - Unspecified atrial fibrillation Category: Medical Plan: Currently on anticoagulation with apixaban 5 mg and on rate control with labetalol. Recently seen by Cardiology found to have stable AFib advised to continue on apixaban (3) Diabetes: Code(s): E11.9 - Type 2 diabetes mellitus without complications Category: Medical Plan: Decrease the amount of carbohydrates such as pasta, bread, rice, and potatoes and limit the amount of sweets. Although fruits are generally healthy they should be eaten in moderation as they are still high in sugar. Hemoglobin A1c goal of less than 7%. A1c in the clinic today 5.3%. (4) Heart failure: Code(s): I50.9 - Heart failure, unspecified Category: Medical Plan: Patient previously diagnosed with heart failure on spironolactone. On exam today no signs of fluid overload and no symptoms of heart failure reported. Continue with management of blood pressure, cholesterol and diabetes. Cardiology also ordered echocardiogram to be completed before next visit. (5) Cognitive impairment: Comment: mild cognitive impairment - vascular vs mixed Code(s): R41.89 - Other symptoms and signs involving cognitive functions and awareness Category: Medical Plan: Recently seen by Neurology and started on memantine. MRI was ordered which revealed no acute abnormality continue to follow with Neurology at this time (6) Hypertension: Code(s): I10 - Essential (primary) hypertension Category: Medical Qualifiers: Hypertension type: renovascular hypertension Qualified Code(s): I15.0 - Renovascular hypertension Plan: Continue on current blood pressure medication. Avoid salt intake and encourage healthy diet and regular exercise. Patient forgets to take his blood pressure medications which could be the cause of his elevated diastolic pressure today. Patient states his blood pressures at home have been within normal range and denies any lightheadedness or dizziness or episodes of hypotension. (7) CKD stage 3a, GFR 45-59 ml/min: Code(s): N18.31 - Chronic kidney disease, stage 3a Category: Medical Plan: Continue to follow with Nephrology blood work was ordered and advised to stay well hydrated. Avoid kidney irritants such as NSAIDs. (8) CAD (coronary artery disease): Code(s): I25.10 - Atherosclerotic heart disease of [place] coronary artery without angina pectoris Category: Medical Plan: Advised good control of cholesterol, diabetes and blood pressure at this time. Continue to follow with Cardiology on full oral anticoagulation with Eliquis Plan This note was constructed using voice recognition software. While every effort has been made to ensure accuracy and computed tomography technologist, still areas may have been included sometimes these areas may affect the content or meeting of the given symptoms. Total time spent caring for the patient today was 20 minutes. This includes time spent before the visit reviewing the chart, time spent during the visit, and time spent after the visit and documentation. Patient was informed and verbally consented to the use of an ambient scribe for clinic note documentation during this visit. Orders: Orders Comprehensive Met. Panel 3 Months I25.10 - Atherosclerotic heart disease of [place] coronary artery without angina pectoris, Z00.00 - Encounter for general adult medical examination without abnormal findings AMB Hemoglobin A1c Today Z13.9 - Encounter for screening, unspecified Lipid Panel 3 Months E78.00 - Pure hypercholesterolemia, unspecified
[2024-12-07 11:27] VITALS: BP 126/88
--- OUTSIDE RECORDS SUMMARY | 2024-12-07 13:03 | XMS_ITS | Referral Summary ---
Author Organization [facility] Address [address] [place] [address] Care Team Providers Care Regional Retail Sales Manager Name Role Phone Unavailable Primary Care Provider Unavailabl e Encounters Date Type Department Care Team Description 10/25/2024 1:00 PM EDT Office Visit [facility] Vascular Surgery [address] [place] [address] Forest Supervisor: Alejandro Thomas MD Dissection of descending thoracic aorta (HCC) (Primary Dx) from Last 3 Months Medications atorvastatin (LIPITOR) [...] Info) Description 10/24/2025 12:45 PM EDT Appointment [facility] CT Scan [address] [place], [place] [phone] Alejandro Kitchen MD [address] [place], [place] [phone] 10/24/2025 1:40 PM EDT Follow-Up [facility] ACC Building Vascular Surgery [address] [place] [address] Forest Supervisor: Alejandro Thomas MD [address] [place] [address] Insurance [facility] [employer] Care Teams Regional Retail Sales Manager Relationship Specialty Start Date End Date Ashlie [address] [place] [phone] FLOORING SALESPERSON/PA Student Internal Medicine 09/15/24
== END 2024-12-07 11:31 | disposition home or self-care (01) ==
LOC: HO.HMCH 10:58
DX: I48.91 Unspecified atrial fibrillation (principal); E11.9 Type 2 diabetes mellitus without complications; I50.9 Heart failure, unspecified; N18.31 Chronic kidney disease, stage 3a; I15.0 Renovascular hypertension; E78.00 Pure hypercholesterolemia, unspecified; R41.89 Other symptoms and signs involving cognitive functions and awareness; I25.10 Atherosclerotic heart disease of native coronary artery without angina pectoris

== ENCOUNTER → 2024-12-07 10:58 | Outpatient (BNVA) | payer OTHER, SELFPAY | DX: I25.10 Atherosclerotic heart disease of native coronary artery without angina pectoris (principal); E03.9 Hypothyroidism, unspecified; I48.91 Unspecified atrial fibrillation; I25.2 Old myocardial infarction; J44.9 Chronic obstructive pulmonary disease, unspecified; E78.00 Pure hypercholesterolemia, unspecified; R41.89 Other symptoms and signs involving cognitive functions and awareness; E11.22 Type 2 diabetes mellitus with diabetic chronic kidney disease; I13.0 Hypertensive heart and chronic kidney disease with heart failure and stage 1 through stage 4 chronic kidney disease, or unspecified chronic kidney disease; I50.9 Heart failure, unspecified; I15.0 Renovascular hypertension; N18.31 Chronic kidney disease, stage 3a; Z79.01 Long term (current) use of anticoagulants | CPT/HCPCS: 83036; 96127; 99212 ==

== ENCOUNTER 2024-12-20 10:25 | Outpatient (REF) | payer OTHER, SELFPAY ==
--- OUTSIDE RECORDS SUMMARY | 2024-12-20 11:38 | XMS_ITS | Referral Summary ---
Author Organization [facility] Address [address] [place] [address] Care Team Providers Care Fruit Express Agent Name Role Phone Unavailable Primary Care Provider Unavailabl e Encounters Date Type Department Care Team Description 10/25/2024 1:00 PM EDT Office Visit [facility] Vascular Surgery [address] [place] [address] Certified Novell Engineer: Alejandro Thomas MD Dissection of descending thoracic [...] 68 10/25/2024 1:29 PM EDT Temperature 36.8 C (98.2 F) 10/25/2024 1:29 PM EDT Respiratory Rate 16 10/25/2024 1:29 PM EDT Oxygen Saturation 99% 10/25/2024 1:29 PM EDT Inhaled Oxygen Concentration - - Weight 64 kg (141 lb) 10/25/2024 1:29 PM EDT Height - - Body Mass Index - - Plan of Treatment Upcoming Encounters Date Type Department Care Team (Late st Contact Info) Description 10/24/2025 12:45 PM EDT Appointment [facility] Scan [address] [place], [place] [phone] Alejandro Kitchen MD [address] [place], [place] [phone] 10/24/2025 1:40 PM EDT Follow-Up [facility] Building Vascular Surgery [address] [place] [address] Certified Novell Engineer: Alejandro Thomas MD [address] [place] [address] Insurance [facility] [employer] EDITA CORTEZ [id number] Care Teams Fruit Express Agent Relationship Specialty Start Date End Date [address] [place] [address] PROFESSIONAL POKER PLAYER/PA Student Internal Medicine 09/15/24
[2024-12-20 12:08] LABS: Parathyroid Hormone Intact 116.9 pg/mL (8.7-77.1)
[2024-12-20 12:12] LABS: Anion Gap 11 (12-20); Blood Urea Nitrogen 18 mg/dL (9-16); Calcium 8.9 mg/dL (8.4-10.2); Carbon Dioxide 27 mmol/L (22-29); Chloride 106 mmol/L (96-108); Estimated Glomerular Filt Rate 56; Phosphorus 2.7 mg/dL (2.7-4.5); Potassium 3.8 mmol/L (3.3-5.1); Sodium 140 mmol/L (135-145)
[2024-12-20 12:24] LABS: Vitamin D 25-OH Total 29.9 ng/mL (>30)
[2024-12-21 13:03] LABS: Appearance Urine Clear; Color Urine Yellow; Glucose Urine UA Negative (Negative); Leukocyte Esterase Urine Negative (Negative); Nitrite Urine Negative (Negative); Specific Gravity - Urine 1.025 (1.005-1.025); Urine Blood Negative (Negative); Urine Ketones Trace mg/dL (Negative); Urine Protein Negative (Neg-Trace)
[2024-12-21 13:45] LABS: Creatinine Urine 206.17 mg/dL; Protein/Creatinine Ratio, Ur 0.06 (<0.2); Total Protein Urine Random 13 mg/dL (<12)
[2024-12-23 17:34] LABS: IgA 221 mg/dL (70-320); IgG 1488 mg/dL (600-1540); IgM 81 mg/dL (50-300)
== END 2024-12-20 10:26 | disposition home or self-care (01) ==
LOC: HO.LAB 10:25
PROVIDERS: Visit Provider Internal Medicine Nephrology
DX: N18.31 Chronic kidney disease, stage 3a (principal)
CPT/HCPCS: 36415; 80051; 81003; 82306; 82310; 82565; 82570; 82784; 83970; 84100; 84156; 84520; 86334

== ENCOUNTER 2024-12-24 13:52 | Outpatient (AMB) | payer OTHER, SELFPAY ==
--- NOTE | 2024-12-24 14:06 | HO.NEPHOV ---
Vital Signs 12/24/24 14:07 Height 5 ft 7 in Weight 143 lb 6 oz BMI 22.5 BP 140/90 H Blood Pressure Location Rt brachial Position Sitting Pulse 97 Pulse Source Pulse Oximeter Pulse Oximetry (%) 100 Oxygen Delivery Method Room Air Intake Visit Reasons: 2mon follow-up w/labs-Conf w/niece Intake Note: Patient here for a follow-up. Cigar Head Piercer Required: Yes Cigar Head Piercer Name: Stoney [id number] Information Interpreted: clinical only Accompanied by: Grand Child Allergies No Known Allergies Allergy (Verified 12/24/24 14:10) Do you need a note to return to daycare/school/sports/work: No HPI Comments Details: Toan was seen for F/U for atrophic kidney, CKD and hypertension. He is a 79-year-old male who [place] was [place] [facility] emergency department complaining of chest pain. He is known to have aortic aneurysm but went on to have a type B aortic aneurysm dissection. He has Chronic Kidney Disease Stage 3 with an atrophic left kidney. Patient evaluated by vascular surgery during his [facility] [place]. He developed ANDREA likely from contrast but his renal function improved with IV fluids. He was resumed on lisinopril on 10/03/2024 when his ANDREA has resolved. Patient's blood pressure has been fairly controlled with amlodipine 5 mg daily and labetalol 100 mg twice daily in addition to ACEI. He is due to have repeat CTA of chest abdomen pelvis in 1 month and vascular surgery in [facility] [place] arranging it along with outpatient follow-up appointment. His serum creatinine is at baseline now and he does not have any orthostatic symptoms. He denies nausea, vomiting, diarrhea, chest pain, shortness of breath, paroxysmal nocturnal dyspnea, orthopnea, pedal edema, urinary symptoms, fever or hematuria. He does not take any nonsteroidal anti-inflammatories. He feels well. He was accompanied by his niece who is his double ending machine operator. [facility] Medical History Cognitive impairment Hypertension Dementia CKD stage 3a, GFR 45-59 ml/min Atrophy of left kidney ANDREA (acute kidney injury) Myocardial infarction Surgical History H/O inguinal hernia repair H/O heart artery stent Social History Housing: House Alcohol intake: never Patient Tobacco Use Status: Former Tobacco user e-Cigarette/Vaping Use: Never Used Second Hand Smoke Exposure: Yes service: No Current occupational status: retired Cognitive needs: Yes (Cane) Hearing needs: Yes (Hearing aide) Vision needs: No Review of Systems Const All systems reviewed & are unremarkable except as noted in HPI and below Physical Exam Vital Signs: Last Vital Signs Pulse 97 12/24/24 14:07 BP 146/90 H 12/24/24 14:07 Pulse Ox 100 12/24/24 14:07 Oxygen Delivery Method Room Air 12/24/24 14:07 BMI result Body Mass Index 22.5 Const General: comfortable and no acute distress Orientation/consciousness: patient oriented x3 HEENT Head: Yes normocephalic Mouth: Normal oral and palatal mucosa present Eyes EOM: EOMs intact bilaterally Neck Neck: Yes supple Resp Auscultation: clear to auscultation bilaterally Cardio Jugular venous distension: no JVD Rate: regular rate GI Palpation (GI): Soft to palpation Auscultation: normal bowel sounds General: Yes no CVA tenderness Back/Spine/Pelvis Back: no CVA tenderness Skin General skin exam: no rashes or lesions noted Neuro General: patient oriented x3 and moves all extremities Extrem General: Yes no pedal edema Results Reviewed Nephrology Results: Sodium, (135-145) 140 mmol/L 12/20/24 Potassium, (3.3-5.1) 3.8 mmol/L 12/20/24 Chloride, (96-108) 106 mmol/L 12/20/24 Carbon Dioxide, (22-29) 27 mmol/L 12/20/24 BUN, (9-16) 18 mg/dL H 12/20/24 Creatinine, (0.5-1.4) 1.24 mg/dL 12/20/24 Calcium, (8.4-10.2) 8.9 mg/dL 12/20/24 Phosphorus, (2.7-4.5) 2.7 mg/dL 12/20/24 PTH Intact, (8.7-77.1) 116.9 pg/mL H 12/20/24 Urine Protein, (Neg-Trace) Negative mg/dL 12/20/24 Urine Creatinine 206.17 mg/dL 12/20/24 Protein/Creatinin Ratio, (<0.2) 0.06 12/20/24 Assessment & Plan Assessment & Plan (1) Hypertension: Code(s): I10 - Essential (primary) hypertension Category: Medical Qualifiers: Hypertension type: renovascular hypertension Qualified Code(s): I15.0 - Renovascular hypertension (2) CKD stage 3a, GFR 45-59 ml/min: Code(s): N18.31 - Chronic kidney disease, stage 3a Category: Medical Plan Toan has CKD due to vascular disease. He has left atrophic kidney. He has history of coronary artery disease and aortic dissection. His blood pressure needs to be maintain at goal. He is tolerating DEISY inhibitor. He avoids nonsteroidal anti-inflammatories and maintain good hydration. I have ordered follow-up lab work. He is a potential candidate for SGLT 2 i. He may need activated Vitamin D soon. I did not make any medication changes today. All his questions were answered and follow-up appointment was given. Orders: Orders Creatinine 6 Months I15.0 - Renovascular hypertension, N18.31 - Chronic kidney disease, stage 3a Blood Urea Nitrogen 6 Months I15.0 - Renovascular hypertension, N18.31 - Chronic kidney disease, stage 3a Electrolytes 6 Months I15.0 - Renovascular hypertension, N18.31 - Chronic kidney disease, stage 3a Calcium 6 Months I15.0 - Renovascular hypertension, N18.31 - Chronic kidney disease, stage 3a Parathyroid Hormone Intact 6 Months I15.0 - Renovascular hypertension, N18.31 - Chronic kidney disease, stage 3a Coding Level of Care Code Est Pt Level 4 (11047) Diagnoses Renovascular hypertension I15.0 Hypertension type: renovascular hypertension CKD stage 3a, GFR 45-59 ml/min N18.31
[2024-12-24 14:07] VITALS: BP 140/90; PULSE 97; O2SAT 100; BMI 22.5
--- OUTSIDE RECORDS SUMMARY | 2024-12-24 14:20 | XMS_ITS | Referral Summary ---
Author Organization [facility] Address [address] [place] [address] Care Team Providers Care Vp Design Name Role Phone Unavailable Primary Care Provider Unavailabl e Encounters Date Type Department Care Team Description 10/25/2024 1:00 PM EDT Office Visit [facility] Vascular Surgery [address] [place] [address] Lead Janitor: Alejandro Thomas MD Dissection of descending thoracic [...] Info) Description 10/24/2025 12:45 PM EDT Appointment [facility] CT Scan [address] [place], [place] [phone] Alejandro Kitchen MD [address] [place], [place] [phone] 10/24/2025 1:40 PM EDT Follow-Up [facility] ACC Building Vascular Surgery [address] [place] [address] Lead Janitor: Alejandro Thomas MD [address] [place] [address] Insurance [facility] [employer] EDITA CORTEZ [id number] Care Teams Vp Design Relationship Specialty Start Date End Date [address] [place] [address] CHARTER PILOT/PA Student Internal Medicine 09/15/24
== END 2024-12-24 14:35 | disposition home or self-care (01) ==
PROVIDERS: Visit Provider Internal Medicine Nephrology
DX: I12.9 Hypertensive chronic kidney disease with stage 1 through stage 4 chronic kidney disease, or unspecified chronic kidney disease (principal); N18.31 Chronic kidney disease, stage 3a
CPT/HCPCS: 99214

== ENCOUNTER → 2024-12-24 13:52 | Outpatient (BNVA) | payer OTHER, SELFPAY | PROVIDERS: Visit Provider Internal Medicine Nephrology | DX: I15.0 Renovascular hypertension (principal); N18.31 Chronic kidney disease, stage 3a | CPT/HCPCS: 99212 ==

== ENCOUNTER 2025-01-11 11:03 | Outpatient (REF) | payer OTHER, SELFPAY ==
--- OUTSIDE RECORDS SUMMARY | 2025-01-11 12:27 | XMS_ITS | Referral Summary ---
Author Organization [facility] Address [address] [place] [address] Care Team Providers Care Ruby Rails Developer Name Role Phone Unavailable Primary Care Provider Unavailabl e Encounters Date Type Department Care Team Description 10/25/2024 1:00 PM EDT Office Visit [facility] Vascular Surgery [address] [place] [address] French Binder: Alejandro Thomas MD Dissection of descending thoracic [...] Info) Description 10/24/2025 12:45 PM EDT Appointment [facility] [address] [place] [address] Alejandro Kitchen MD [address] [place], [place] [phone] 10/24/2025 1:40 PM EDT Follow-Up [facility] Building Vascular Surgery [address] [place] [address] French Binder: Alejandro Thomas MD [address] [place], [place] [phone] Insurance [facility] ALLIANCE EDITA CORTEZ [id number] Care Teams Ruby Rails Developer Relationship Specialty Start Date End Date [address] [address] SWIM COACH/PA Student Internal Medicine 09/15/24
--- OUTSIDE RECORDS SUMMARY | 2025-01-11 12:27 | XMS_ITS | Clinical Summary ---
Author Organization [facility] Address [address] [facility] [address] [place] [address] Care Team Providers Care Band Head Saw Operator Name Role Phone Unavailable Primary Care [...] Visit [facility] [address] [place] [id number] Pepe Valle, [address] [place] [address] Health Maintenance Due Date Last Done Comments Pneumococcal Vaccine: 50+ Ye ars (1 of 1 - PCV) 1994 Influenza Vaccine (#1) 2025 Hepatitis B Vaccine Aged Out No longe r eligible based on patient's age to complete this topic Insurance [employer] Dual SNP ([id number])
[2025-01-11 12:50] LABS: PSA,Total (Free>4and<10) 13.96 ng/mL (0.00-4.00)
== END 2025-01-11 11:04 | disposition home or self-care (01) ==
LOC: HO.LAB 11:03
PROVIDERS: Visit Provider Nurse Practitioner Family
DX: R97.20 Elevated prostate specific antigen [PSA] (principal)
CPT/HCPCS: 36415; 84153

== ENCOUNTER 2025-01-13 07:57 | Outpatient (AMB) | payer OTHER, SELFPAY ==
--- OUTSIDE RECORDS SUMMARY | 2025-01-13 07:59 | XMS_ITS | Referral Summary ---
Author Organization [facility] Address [address] [place] [address] Care Team Providers Care President & Founder Name Role Phone Unavailable Primary Care Provider Unavailabl e Encounters Date Type Department Care Team Description 10/25/2024 1:00 PM EDT Office Visit [facility] Vascular Surgery [address] [place] [address] Manager Web: Alejandro Thomas MD Dissection of descending thoracic [...] Info) Description 10/24/2025 12:45 PM EDT Appointment [facility] [address] [place] [address] Alejandro Kitchen MD [address] [place], [place] [phone] 10/24/2025 1:40 PM EDT Follow-Up [facility] Building Vascular Surgery [address] [place] [address] Manager Web: Alejandro Thomas MD [address] [place], [place] [phone] Insurance [facility] ALLIANCE EDITA CORTEZ [id number] Care Teams President & Founder Relationship Specialty Start Date End Date [address] [place]. [address] BOUNTY TRAPPER/PA Student Internal Medicine 09/15/24
--- NOTE | 2025-01-13 08:02 | MHC.OFFVIS ---
Intake Visit Reasons: 4m/PSA/PVR Intake Note: Patient presents today for follow up visit on: elevated psa and psa lab results PSA: 13.96 Urology Medications: Finasteride Blood Thinner: Apixaban Building Insulation Supervisor Required: Yes Building Insulation Supervisor Services: Building Insulation Supervisor Present Building Insulation Supervisor Name: Luis [id number] Accompanied by: Unknown Allergies No Known Allergies Allergy (Verified 01/14/25 14:42) Medication List - Last Reconciled 01/14/25 by MEHREEN UrbanP- amlodipine 5 mg PO DAILY apixaban (Eliquis) 5 mg PO ONCE atorvastatin 40 mg PO BEDTIME finasteride 5 mg PO DAILY 90 days heating pads As directed hospital bed As directed labetalol 50 mg (1/2 x 100 mg) PO BID 90 days levothyroxine 25 mcg PO DAILY lisinopril 20 mg PO DAILY memantine 14 mg (2 x 7 mg) PO DAILY MDD 14mg [quad cane As directed] Shower Chair As directed [walker As directed for long distance] walker (Ultra-Light Rollator misc) As directed HPI Comments Details: Toan is a very pleasant 79-year-old Portuguese-speaking male patient of Dr. Leonardwho was accompanied by his niece at today's office visit. He has a past medical history of myocardial infarction in 2020, hypertension, and hypothyroidism. He presents to the office today for follow-up of his elevated PSA. In discussion with the patient today reports to be doing and feeling well. He reports compliance with finasteride 5 mg daily as prescribed however has recently ran out of medications in his requesting a refill. Previous workup has included a retroperitoneal ultrasound bilateral kidneys are normal in echotexture. No hydronephrosis or renal calculi noted. The bladder is fluid-filled. Bilateral ureteral jets are demonstrated. Pre void bladder volume is a proximally 165 mL. Postvoid bladder volume is a proximally 15 mL. The prostate gland measures 35 mL. 3.7 cm irregular shaped mixed plaque infrarenal/distal abdominal aorta recommending further imaging evaluation with CT angiogram per radiology report. Patient and patient's niece report he has since followed up with vascular surgery and continues to follow-up with vascular surgery. Recent PSA results reviewed with the patient today as noted and trended below PSA: 05/23 20.8, 07/24 15.2, 01/21 14.0 We discussed decrease in PSA although remains elevated. We discussed further intervention to include surveillance monitoring, continuation of finasteride, MRI of the prostate, and or prostate biopsy. Risks and benefits of these interventions were discussed. All questions were answered. He denies urinary urgency, urinary frequency, incontinence, nocturia, hematuria, dysuria, foul smelling urine, changes to urinary stream, flank pain, fever, and or chills. He is happy with his current voiding parameters. He denies any family history of prostate cancer. In office urinalysis results reviewed with the patient today. PVR 0 mL. He otherwise offers no other issues or concerns at this time. [facility] Medical History Cognitive impairment Hypertension Dementia CKD stage 3a, GFR 45-59 ml/min Atrophy of left kidney ANDREA (acute kidney injury) Myocardial infarction Surgical History H/O inguinal hernia repair H/O heart artery stent Social History Housing: House Alcohol intake: never Patient Tobacco Use Status: Former Tobacco user e-Cigarette/Vaping Use: Never Used Second Hand Smoke Exposure: Yes service: No Current occupational status: retired Cognitive needs: Yes (Cane) Hearing needs: Yes (Hearing aide) Vision needs: No Review of Systems Const All systems reviewed & are unremarkable except as noted in HPI and below Physical Exam Const General: cooperative, healthy appearing, comfortable, no acute distress, well developed, alert and awake Nutritional Appearance: thin Orientation/consciousness: patient oriented x3 Limitations: language barrier and ambulation with cane HEENT Head: Yes normal to inspection, Yes normocephalic and Yes atraumatic Ears: hearing grossly normal bilaterally Eyes General: appearance normal, both eyes and all related structures Neck Neck: Yes normal visual inspection and Yes trachea midline Chest Chest palpation & inspection: normal inspection of the chest Resp Effort & Inspection: normal respiratory effort and able to speak in complete sentences Cardio Rate: regular rate GI Inspection: Yes normal to inspection General: Yes no CVA tenderness Back/Spine/Pelvis Back: no CVA tenderness Skin General skin exam: no rashes or lesions noted Neuro General: patient oriented x3 Extrem General: Yes normal to inspection Psych Appearance: grossly normal and well kempt Mental Status: mental status grossly normal Speech and movement: Normal speech and movement present and Clear speech present Affect: normal affect Attitude: cooperative Thought process: Normal thought process present Thought content: Normal thought content present Insight: Fair insight present (Psych) Judgement: Fair judgement present (Psych) Office Procedures Post Void Residual Post Residual Void Post Void Residual (PVR): 0 10479-[id number] Void Residual by ultrasound Results AMB Urinalysis, Automated UA Leukoctes 0 Kvng/uL Last Edit by Joseline Del Valle [facility] on 01/13/25 08:16 UA Nitrite Last Edit by Joseline Del Valle [facility] on 01/13/25 08:16 UA Urobilinogen 0.2 mg/dL Last Edit by Joseline Del Valle [facility] on 01/13/25 08:16 UA Protein 0 mg/dL Last Edit by Joseline Del Valle [facility] on 01/13/25 08:16 UA pH 6.0 Last Edit by Joseline Del Valle [facility] on 01/13/25 08:16 UA Blood 0 Osvaldo/uL Last Edit by Joseline Del Valle [facility] on 01/13/25 08:16 UA Specific [place] 1.015 Last Edit by Joseline Del Valle [facility] on 01/13/25 08:16 UA Ketone Last Edit by Joseline Del Valle [facility] on 01/13/25 08:16 UA Bilirubin 0 mg/dL Last Edit by Joseline Del Valle [facility] on 01/13/25 08:16 UA Glucose 0 mg/dL Last Edit by Joseline Del Valle [facility] on 01/13/25 08:16 Results Reviewed Results Reviewed: Laboratory Last Values Urine pH (Auto) 6.0 01/13/25 08:15 Specific [place] (Auto) 1.015 01/13/25 08:15 Urine Protein (Auto) 0 mg/dL 01/13/25 08:15 Glucose (UA)(Auto) 0 mg/dL 01/13/25 08:15 Urine Blood (Auto) 0 Osvaldo/uL 01/13/25 08:15 Urine Bilirubin (Auto) 0 mg/dL 01/13/25 08:15 Urine Urobilinogen (Auto) 0.2 mg/dL 01/13/25 08:15 Leukocyte Esterase (Auto) 0 Kvng/uL 01/13/25 08:15 Assessment & Plan Assessment & Plan (1) Elevated PSA: Code(s): R97.20 - Elevated prostate specific antigen [PSA] Category: Medical Plan In office urinalysis results reviewed with the patient today; as noted above. PVR 0ml's. Recent PSA results reviewed with the patient today; as noted above. We did discussed potential causes of elevated PSA We discussed further treatment options and risks and benefits of these treatment options All questions were answered Continue finasteride Will obtain MRI of the prostate for further assessment evaluation He currently denies any bothersome urinary issues He reports be happy with current voiding parameters Follow-up in 6-8 weeks with imaging to be completed prior; or sooner with any issues, concerns, and or questions. Orders: Orders AMB Urinalysis Automated 01/13/25 Z13.9 - Encounter for screening, unspecified AMB Post Void Residual by ultrasound 01/13/25 R97.20 - Elevated prostate specific antigen [PSA] PSA,Total (Free>4and<10) 01/13/25 R97.20 - Elevated prostate specific antigen [PSA] MR Prostate wo/w con 01/13/25 R97.20 - Elevated prostate specific antigen [PSA] Medications: Refilled finasteride 5 mg PO DAILY 90 tabs 3RF 90 days N40.1 - Benign prostatic hyperplasia with lower urinary tract symptoms, R33.9 - Retention of urine, unspecified Patient Instructions: The patient had an opportunity to ask questions regarding the treatment plan. All questions were answered. Physical exam, labs, and imaging were discussed and reviewed in detail. As well as risks, benefits, and discussion of treatment choices. No major barriers to understanding were identified. The patient expressed understanding and agreement with the above treatment plan. The patient was made aware they should contact our office by phone for worsening of their current condition, the appearance of new symptoms, or with any questions or concerns. Compliance is encouraged with any medications and follow up testing that is ordered. It is a privilege to be allowed the opportunity to participate in? your urological care.? Again, if you have any questions or concerns If you have any questions or concerns please do not hesitate to contact me. The office is [phone]. This note is constructed using voice recognition software. While every effort has been made to ensure accuracy document coordinator errors may have been included. Yours sincerely, Chela García, PLUMBING DRAFTER-BC Coding Level of Care Code Est Pt Level 3 (34909) Complex EM visit Add On G2211 Diagnoses Elevated PSA R97.20 CPT Codes Post Residual Void - PVR CPT Code: 66244-Xvnd Void Residual by ultrasound ([id number])
== END 2025-01-13 08:30 | disposition home or self-care (01) ==
LOC: HO.HUSH 07:57
PROVIDERS: Visit Provider Nurse Practitioner Family
DX: Z13.9 Encounter for screening, unspecified (principal)

== ENCOUNTER → 2025-01-13 07:57 | Outpatient (BNVA) | payer OTHER, SELFPAY | PROVIDERS: Visit Provider Nurse Practitioner Family | DX: R97.20 Elevated prostate specific antigen [PSA] (principal) | CPT/HCPCS: 51798; 81003; 99212 ==

== ENCOUNTER 2025-03-09 08:10 | Outpatient (REF) | payer OTHER, SELFPAY ==
[2025-03-09 11:17] LABS: Alanine Aminotransferase 6 U/L (0-40); Albumin Level 3.8 g/dL (3.5-5.0); Alkaline Phosphatase 112 U/L (39-117); Anion Gap 12 (12-20); Aspartate Amino Transferase 20 U/L (5-37); Blood Urea Nitrogen 18 mg/dL (9-16); Calcium 8.9 mg/dL (8.4-10.2); Carbon Dioxide 29 mmol/L (22-29); Chloride 105 mmol/L (96-108); Cholesterol 134 mg/dL (<200); Estimated Glomerular Filt Rate 48; HDL Cholesterol 36 mg/dL (>40); Potassium 4.1 mmol/L (3.3-5.1); Sodium 142 mmol/L (135-145); Total Protein 7.0 g/dL (6.5-8.0); Triglycerides 56 mg/dL (<150)
== END 2025-03-09 08:11 | disposition home or self-care (01) ==
LOC: HO.LAB 08:10
DX: Z00.00 Encounter for general adult medical examination without abnormal findings (principal); I25.10 Atherosclerotic heart disease of native coronary artery without angina pectoris; E78.00 Pure hypercholesterolemia, unspecified; I15.0 Renovascular hypertension; E11.22 Type 2 diabetes mellitus with diabetic chronic kidney disease; N18.31 Chronic kidney disease, stage 3a; I50.9 Heart failure, unspecified; E03.9 Hypothyroidism, unspecified; I48.91 Unspecified atrial fibrillation; R41.89 Other symptoms and signs involving cognitive functions and awareness; Z79.01 Long term (current) use of anticoagulants; Z79.890 Hormone replacement therapy; Z79.899 Other long term (current) drug therapy
CPT/HCPCS: 36415; 80053; 80061; 83036; 84443; 99212

== ENCOUNTER 2025-03-09 08:10 | Outpatient (AMB) | payer OTHER, SELFPAY ==
--- NOTE | 2025-03-09 08:18 | MHC.PC.OV ---
Vital Signs 03/09/25 08:27 Height 5 ft 7 in Weight 149 lb 4 oz BMI 23.4 BP 134/80 Blood Pressure Location Lt brachial Position Sitting Pulse 75 Pulse Source Pulse Oximeter Temp 97.0 F Temp Source Temporal Artery Scan Pulse Oximetry (%) 98 Oxygen Delivery Method Room Air Intake Visit Reasons: f/u CAD Flight Communications Operator Required: Yes Flight Communications Operator Language: [place] Allergies No Known Allergies Allergy (Verified 03/09/25 08:23) Medication List - Last Reconciled 03/09/25 by Ashlie Vitale PA-C amlodipine 5 mg PO DAILY apixaban (Eliquis) 5 mg PO ONCE atorvastatin 40 mg PO BEDTIME finasteride 5 mg PO DAILY 90 days heating pads As directed hospital bed As directed labetalol 50 mg (1/2 x 100 mg) PO BID 90 days levothyroxine 25 mcg PO DAILY lisinopril 20 mg PO DAILY memantine 14 mg (2 x 7 mg) PO DAILY [quad cane As directed] Shower Chair As directed [walker As directed for long distance] walker (Ultra-Light Rollator misc) As directed Tobacco use date assessed: 03/09/25 Fall risk assessment: 1 Fall in past year Last assessed Fall Risk: 03/09/25 Dental Screening Dental Screen Date: 12/07/24 Did you have a dental visit in the last 12 months?: No Did you have a dental problem in the last 6 months where you did not have access to dental care?: No Was dental information given to patient?: Yes HPI f/u CAD HPI Details 79-year-old male with past medical history of aortic dissection, hypothyroidism, AFib, hypertension, coronary artery disease, history of OR, rheumatoid arthritis, COPD, diabetes, heart failure last seen 11/2024 coming in for follow up. In review of the notes, patient was seen by urology 12/2024 plan for MRI, continued on Finasteride and follow up in 6-8 weeks. Seen by nephrology 11/2024 no changes were made and plan to follow up in 6 months with consideration of SGLT2. oracle erp architect Arsalan [id number] was used for the duration of this visit. Presenting for routine follow-up and management of chronic conditions with his niece. The patient is currently on Eliquis and reports no chest pain or palpitations. Sequ[facility] Winder follow-up is scheduled for May. Blood pressure is well-controlled, with recent measurements within normal limits. Blood sugar levels are well-controlled with a recent reading of 5.2. The patient continues on atorvastatin therapy. The patient is on memantine and reports doing well. ON LICENSE OF [facility] Medical History Cognitive impairment Hypertension Dementia CKD stage 3a, GFR 45-59 ml/min Atrophy of left kidney ANDREA (acute kidney injury) Myocardial infarction Surgical History H/O inguinal hernia repair H/O heart artery stent Social History Housing: House Alcohol intake: never Patient Tobacco Use Status: Former Tobacco user e-Cigarette/Vaping Use: Never Used Second Hand Smoke Exposure: Yes service: No Current occupational status: retired Cognitive needs: Yes (Cane) Hearing needs: Yes (Hearing aide) Vision needs: No Questionnaire PHQ-9 Over the last 2 weeks, how often have you been bothered by any of the following problems? 1. Little interest or pleasure in doing things: not at all 2. Feeling down, depressed, or hopeless: not at all 3. Trouble falling or staying asleep, or sleeping too much: not at all 4. Feeling tired or having little energy: not at all 5. Poor appetite or overeating: not at all 6. Feeling bad about yourself - or that you are a failure or have let yourself or your family down: not at all 7. Trouble concentrating on things, such as reading the newspaper or watching television: not at all 8. Moving or speaking so slowly that other people could have noticed. Or the opposite - being so fidgety or restless that you have been moving around a lot more than usual: not at all 9. Thoughts that you would be better off or of hurting yourself in some way: not at all Total score: 0 Depression Screening Interpretation: Negative Depression Screening Done: Yes Source: Developed by Drs. Tono Arellano, Shauna Mazariegos, Vamsi Petersen and colleagues, with an educational sheila from [employer]. Thrive Questionnaire Date Thrive assessed: 12/07/24 I am a: Patient What is your living situation today?: I have a steady place to live Within the past 12 months, did the food you bought not last and you didn't have the money to get more?: Never true Within the past 12 months, did you worry whether your food would run out before you got money to buy more?: Never true Do you have trouble paying for medicines?: No Do you have trouble getting transportation to medical appointments?: No Do you have trouble paying your heating and electricity bill?: No Do you have trouble taking care of your child, family member or friend?: No Do you have trouble with day-to-day activities such as bathing, preparing meals, shopping, managing finances, etc.?: No Are you currently unemployed and looking for a job?: No Are you interested in more education?: No Please select the resources that you would like help with: None Currently or been in a relationship where the following occur: No concerns reported THRIVE Score: 0 AUDIT C Alcohol Use Questionnaire (AUDIT-C) 1. How often do you have a drink containing alcohol?: Never 3. How often do you have six or more drinks on one occasion?: Never Total Score: 0 TANYA-7 AMB Questionnaire TANYA-7 Date TANYA - 7 assessed: 09/06/24 Feeling nervous, anxious, or on edge: 0 = Not at all Not being able to stop or control worryin = Not at all Worrying too much about different things: 0 = Not at all Trouble relaxin = Not at all Being so restless that it is hard to sit still: 0 = Not at all Becoming easily annoyed or irritable: 0 = Not at all Feeling afraid as if something awful might happen: 0 = Not at all Total TANYA-7 score (0-4 normal; 5-9 mild; 10-14 moderate; 15-21 severe): 0 Source: Developed by Drs. Tono Arellano, Shauna Mazariegos, Vamsi Petersen and colleagues, with an educational sheila from [employer]. Review of Systems Const Denies body aches, Denies chills, Denies fever(s), Denies headache(s) and Denies poor appetite Eyes Reports no additional complaints ENT Denies dizziness and Denies headache(s) Card Denies chest pain, Denies edema, Denies irregular heart rhythm, Denies lightheadedness and Denies dyspnea Resp Denies dyspnea GI Denies nausea and Denies vomiting Reports no additional complaints Musc Reports no additional complaints and Denies abnormal gait Skin/Breast Reports system reviewed and no additional complaints, except as documented Neuro Denies abnormal gait, Denies dizziness and Denies headache(s) Psych Reports no additional complaints Physical exam (Primary Care) Tobacco/Smoking Status: Tobacco use Status Tobacco use date assessed 03/09/25 03/09/25 08:20 Patient Tobacco Use Status Former Tobacco user 03/09/25 08:20 e-Cigarette/Vaping Use Never Used 03/09/25 08:20 PHQ-9: PHQ-9 Score PHQ-9: Total score 0 03/09/25 08:20 Depression Screening Interpretation: Negative Thrive Assessment: Date of Thrive Assessment Date Thrive assessed 12/07/24 03/09/25 08:20 Currently or been in a relationship where the following occur: No concerns reported Const General: cooperative, healthy appearing, comfortable and no acute distress Orientation/consciousness: patient oriented x3 HENMT Head: Yes normocephalic Ears: hearing grossly normal bilaterally General nose exam: Normal external nose present Eyes General: appearance normal, both eyes and all related structures Conjunctivae: conjunctivae normal Neck Neck: Yes full ROM and Yes no lymphadenopathy Resp Effort & Inspection: normal respiratory effort Auscultation: clear to auscultation bilaterally, no crackles, no rales, no rhonchi and no wheezes Cardio Rate: regular rate Rhythm: regular rhythm Skin General skin exam: no rashes or lesions noted Neuro General: patient oriented x3 Gait exam (Neuro): Normal gait present Extrem General: Yes normal to inspection, Yes full ROM and No edema Psych Affect: normal affect Attitude: cooperative Insight: Good insight present (Psych) Judgement: Good judgement present (Psych) Results AMB Hemoglobin A1c AMB Hemoglobin A1c 5.2 % Last Edit by Reina Erwin CMA on 03/09/25 08:31 Coding Level of Care Code Est Pt Level 3 (80299) Diagnoses Hypercholesterolemia E78.00 Afib I48.91 Diabetes E11.9 Heart failure I50.9 Cognitive impairment R41.89 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 Triglyceride goal of less than 150 and LDL goal of less than 70. Continue on atorvastatin 40. Reminded about blood work (2) Afib: Code(s): I48.91 - Unspecified atrial fibrillation Category: Medical Plan: Currently on anticoagulation with apixaban 5 mg and on rate control with labetalol. Per Cardiology continue on full oral anticoagulation with Eliquis. (3) Diabetes: Code(s): E11.9 - Type 2 diabetes mellitus without complications Category: Medical Plan: Decrease the amount of carbohydrates such as pasta, bread, rice, and potatoes and limit the amount of sweets. Although fruits are generally healthy they should be eaten in moderation as they are still high in sugar. Hemoglobin A1c goal of less than 7%. A1c in the clinic today 5.2 %. (4) Heart failure: Code(s): I50.9 - Heart failure, unspecified Category: Medical Plan: Patient previously diagnosed with heart failure on spironolactone. On exam today no signs of fluid overload and no symptoms of heart failure reported. Continue with management of blood pressure, cholesterol and diabetes. Cardiology also ordered echocardiogram to be completed before next visit. (5) Cognitive impairment: Comment: mild cognitive impairment - vascular vs mixed Code(s): R41.89 - Other symptoms and signs involving cognitive functions and awareness Category: Medical Plan: He will continue to follow with Neurology and feels good on memantine at this time. (6) Hypertension: Code(s): I10 - Essential (primary) hypertension Category: Medical Qualifiers: Hypertension type: renovascular hypertension Qualified Code(s): I15.0 - Renovascular hypertension Plan: Continue on current blood pressure medication. Avoid salt intake and encourage healthy diet and regular exercise. (7) CKD stage 3a, GFR 45-59 ml/min: Code(s): N18.31 - Chronic kidney disease, stage 3a Category: Medical Plan: Continue to follow with Nephrology blood work was ordered and advised to stay well hydrated. Avoid kidney irritants such as NSAIDs. (8) CAD (coronary artery disease): Code(s): I25.10 - Atherosclerotic heart disease of [place] coronary artery without angina pectoris Category: Medical Plan: Advised good control of cholesterol, diabetes and blood pressure at this time. Continue to follow with Cardiology on full oral anticoagulation with Eliquis Plan This note was constructed using voice recognition software. While every effort has been made to ensure accuracy and practicing urologist, still areas may have been included sometimes these areas may affect the content or meeting of the given symptoms. Total time spent caring for the patient today was 20 minutes. This includes time spent before the visit reviewing the chart, time spent during the visit, and time spent after the visit and documentation. Patient was informed and verbally consented to the use of an ambient scribe for clinic note documentation during this visit. Orders: Orders AMB Hemoglobin A1c Today Z13.9 - Encounter for screening, unspecified TSH reflex Free T4 Today E03.9 - Hypothyroidism, unspecified Medications: Changed From apixaban (Eliquis) 5 mg PO ONCE 90 tabs 0RF To apixaban (Eliquis) 5 mg PO BID 180 tabs 1RF Refilled amlodipine 5 mg PO DAILY 90 tabs 1RF lisinopril 20 mg PO DAILY 90 tabs 1RF atorvastatin 40 mg PO BEDTIME 90 tabs 1RF labetalol 50 mg (1/2 x 100 mg) PO BID 90 tabs 1RF 90 days levothyroxine 25 mcg PO DAILY 90 tabs 1RF
[2025-03-09 08:27] VITALS: BP 134/80; PULSE 75; TEMP 36.1; O2SAT 98; BMI 23.4
--- OUTSIDE RECORDS SUMMARY | 2025-03-09 09:11 | XMS_ITS | Clinical Summary ---
Author Organization [facility] Address [address] [place] [address] Care Team Providers Care Hand Buffer Name Role Phone Unavailable Primary Care Provider [...] Info) Description 10/24/2025 12:45 PM EDT Appointment [facility] [address] [place] [address] Alejandro Kitchen MD [address] [place], [place] [phone] 10/24/2025 1:40 PM EDT Follow-Up [facility] [place] [facility] V[facility] Surgery [address] [place] [address] Condenser Cleaner: Alejandro Thomas MD [address] [place], [place] [phone] Health Maintenance Due Date Last Done Comments DTaP,Tdap,and Td Vaccines (1 - Tdap) 1966 Pneumococcal Vaccine: 50+ Ye ars (1 of 1 - PCV) 1994 Zoster Vaccines (1 of 2) 1994 RSV Vaccine (60+ years old a nd patients) (1 - 1-dose 75+ series) 2019 Alcohol/Substance Use Screening 06/30/2024 Depression Screening and Follow-Up 06/30/2024 Health Care Proxy Review 06/30/2024 Social Drivers of Health Emily ual Screening 06/30/2024 COVID-19 Vaccine (1 - 2023-2 5 season) 2025 Influenza Vaccine (#1) 2025 Hepatitis B Vaccines Aged Out No long er eligible based on patient's age to complete this topic Insurance [facility] Care Teams Hand Buffer Relationship Specialty Start Date End Date [address] [place] [id number] CALIBRATION TESTER/PA Student Internal Medicine 09/15/24
--- OUTSIDE RECORDS SUMMARY | 2025-03-09 09:11 | XMS_ITS | Clinical Summary ---
Author Organization [facility], Address [address] [place] [address] [place] [address] Phone Care Team Providers Care Service Electrician Name Role Phone Unavailable Primary Care Provider Unavailabl e Medications amLODIPine (NORVASC) 5 MG tablet Take 5 mg by mouth 1 (one) time each day 12/09/2024 Active atorvastatin (LIPITOR) 40 MG tablet Take 40 mg by mouth 1 (one) time each day in the evening 12/09/2024 Active apixaban (Eliquis) 5 MG tablet Take 5 mg by mouth 10/02/2024 Active finasteride (PROSCAR) 5 MG tablet Take 5 mg by mouth 1 (one) time each day 12/10/2024 Active labetalol (NORMODYNE) 100 MG tablet Take 50 mg by mouth in the morning and 50 mg in the evening. 12/07/2024 Active levothyroxine (SYNTHROID, LEVOTHROID) 25 MCG tablet Take 25 mcg by mouth 1 (one) time each day 01/03/2025 Active lisinopril 20 MG tablet Take 20 mg by mouth 1 (one) time each day 12/09/2024 Active Memantine HCl ER 7 MG capsule sustained-relea se 24 hr Take 1 tablet by mouth 1 (one) time each day 11/05/2024 Active amoxicillin (AMOXIL) 500 MG capsule take 1 capsule by mouth three times a day until finished 02/07/2025 Active acetaminophen (TYLENOL 8 HOUR) 650 MG 8 hr tablet Take 650 mg by mouth every 12 (twelve) hours if needed 02/07/2025 Active Active Problems Problem Noted Date Diagnosed Date 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 02/18/2025 Atrophy of kidney 02/18/2025 Stage 3a chronic kidney disease 02/18/2025 Encounters Date Type Department Care Team Description 02/18/2025 2:30 PM EDT Office Visit [facility] [address] [place] [address] Pepe Valle DO Stage 3a chronic kidney disease (HCC) (Primary Dx); 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
== END 2025-03-09 08:48 | disposition home or self-care (01) ==
LOC: HO.HMCH 08:11
DX: I13.0 Hypertensive heart and chronic kidney disease with heart failure and stage 1 through stage 4 chronic kidney disease, or unspecified chronic kidney disease (principal); N18.31 Chronic kidney disease, stage 3a; I50.9 Heart failure, unspecified; E11.22 Type 2 diabetes mellitus with diabetic chronic kidney disease; I48.91 Unspecified atrial fibrillation; E78.00 Pure hypercholesterolemia, unspecified; R41.89 Other symptoms and signs involving cognitive functions and awareness; I25.10 Atherosclerotic heart disease of native coronary artery without angina pectoris